=== PATIENT | female | born 1970 | race Two or more races ===

== ENCOUNTER 2025-03-22 16:46 | Inpatient (IN) | payer MEDICAID, OTHER ==
[~2025-03-22] VITALS: Ht 157.5 cm; Wt 97.4 kg
[~2025-03-22 16:46] MED LIST: ALBU108A5 INH; AMLO1TAB23 PO; AMOX500C2 PO; CHOL20002 PO; DAPA1TAB4 PO; HYDR25TA87 PO; LOSA100T33 PO; METF-371 PO; METO1TAB9 PO
--- NOTE | 2025-03-22 17:01 | ECG ---
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
[2025-03-22] MEDS: NITROGLYCERIN 2% OINT 1GM PKG TD ONE (17:15)
[2025-03-22] MEDS: IPRATROPIUM BROM 0.5 MG/2.5ML INH SOL NEB ONE (17:21)
[2025-03-22] MEDS: ALBUTEROL SULF 2.5 MG/0.5ML(0.5%) NEB SOLN NEB ONE ×2 (17:21→23:59)
[2025-03-22 17:23] LABS: Basophils # (auto) 0 10 ^3/uL (0-0.2); Basophils % (auto) 0.6 % (0.0-2.0); Eosinophils # (auto) 0.1 10 ^3/uL (0-0.8); Eosinophils % (auto) 1.3 % (0.0-7.0); Hematocrit 45.3 % (36.0-46.0); Hemoglobin 15.6 g/dL (12.2-16.2); Lymphocytes # (auto) 2.1 10 ^3/uL (0.4-5.4); Lymphocytes % (auto) 35.5 % (10.0-50.0); Mean Corpuscular Hemoglobin 30.4 pg (28.0-32.0); Mean Corpuscular Hgb Conc. 34.4 g/dL (32.0-36.0); Mean Corpuscular Volume 88.4 fL (80.0-100.0); Monocytes # (auto) 0.8 10 ^3/uL (0-1.3); Neutrophils # (auto) 2.8 10 ^3/uL (1.6-8.6); Neutrophils % (auto) 48.6 % (37.0-80.0); Nucleated Red Blood Cells % 0.3 %; Platelet Count (auto) 191 10^3/uL (140-450); Red Blood Cells 5.13 10^6/uL (4.0-5.20); Red Cell Distribution Width 14.1 % (11.8-14.3); White Blood Cell 5.8 10^3/uL (4.4-10.8)
--- NOTE | 2025-03-22 17:33 | DVH ---
INDICATION: sob TECHNIQUE: Frontal view of the chest. COMPARISON: None FINDINGS: . The heart and mediastinal contours are grossly unremarkable. There is no evidence of pleural disea se. The lungs are clear. The bony structures of the chest are intact without fracture. IMPRESSION: 1. No evidence of acute disease.
[2025-03-22 17:35] LABS: Anion Gap 7 (5-15); Carbon Dioxide 22 mmol/L (20-31); Potassium 3.9 mmol/L (3.5-5.1); Sodium 137 mmol/L (136-145)
[2025-03-22 17:36] LABS: Calcium 9.2 mg/dL (8.7-10.4)
[2025-03-22 17:42] LABS: Blood Urea Nitrogen 8 mg/dL (9-23); Chloride 108 mmol/L (98-107); Glucose 107 mg/dL (74-106)
--- NOTE | 2025-03-22 18:53 | ED.PDOC ---
History of Present Illness HPI Comments 55 y/o F with history of COPD, DM, HTN, and cholecystectomy, brought in by family for c/o shortness of breath, nonradiating, nonproductive cough, left- sided chest pain, cold symptoms and headache that began last night. Patient denies recent travel, sick contact or significant cardiac history. Denies any fever, chills, nausea, vomiting, urinary symptoms, or other associated symptoms. Chief Complaint: Shortness of Breath Time Seen by MD: 16:50 Reviewed Notes: Nurses Notes, Medications, Allergies Allergies: Coded Allergies: Iodine (Verified Allergy, Unknown, 03/22/25) Information Source: Patient Mode of Arrival: Ambulatory Severity: Moderate Past Medical History PAST MEDICAL HISTORY: COPD (w/CPAP use ), DM, HTN Surgical History: Cholecystectomy Surgical History (Other): left-ear surgery All Other Systems: Reviewed and Negative (Comprehensive systems review obtained and negative except for what is stated in the HPI.) Physical Exam General Appearance: Moderate Distress HEENT: Other (Pupils and face symmetric. Moist mucous membranes.) Neck: Full Range of Motion, Normal Inspection Respiratory: Accessory Muscle Use, Decreased Breath Sounds, Respiratory Distress, Rhonchi Cardiovascular: No Edema, No JVD, Regular Rate/Rhythm Breast Exam: Deferred Gastrointestinal: Non Tender, Soft Genitalia: Deferred Pelvic: Deferred Rectal: Deferred Extremities: Normal inspection, Normal range of motion, Non-tender, No pedal edema Neurologic: Alert (Oriented x4), Normal Affect, Normal Mood Cerebellar Function: NOT DONE Reflexes: NOT DONE Skin: Dry, Normal Color, Warm Lymphatic: NOT DONE Was a procedure done? Was a procedure done?: No EKG EKG : Comments Sinus rhythm, rate 96, normal OH and QRS intervals, QTC 479, normal axis, possible old anteroseptal infarct, inferior and lateral ST depression with T- wave inversion Differential Dx Considerations may include: COPD exacerbation, CHF, ACS, AR, PE, PNA, URI, anxiety, angina, costochondritis, pericarditis, viral syndrome, among others X-Ray, Labs, Meds, VS Vital Signs Date Time Temp Pulse Resp B/P (MAP) Pulse Ox O2 Delivery O2 Flow Rate FiO2 03/22/25 21:15 99.0 108 20 186/119 (141) 95 99.0 03/22/25 21:15 20 100 Room Air 03/22/25 17:21 20 95 Nasal Cannula* 2 28 03/22/25 17:06 94 Nasal Cannula* 2 28 03/22/25 17:00 96 03/22/25 16:58 98.4 109 24 168/114 (132) 94 98.4 Lab Test 03/22/25 22:17 03/22/25 18:25 03/22/25 17:05 Range/Units D-Dimer, Quantitative Pending Troponin I High Sensitivity 9 7 </=34 ng/L White Blood Count 5.8 4.4-10.8 10^3/uL Red Blood Count 5.13 4.0-5.20 10^6/uL Hemoglobin 15.6 12.2-16.2 g/dL Hematocrit 45.3 36.0-46.0 % Mean Corpuscular Volume 88.4 80.0-100.0 fL Mean Corpuscular Hemoglobin 30.4 28.0-32.0 pg Mean Corpuscular Hemoglobin Concent 34.4 32.0-36.0 g/dL Red Cell Distribution Width 14.1 11.8-14.3 % Platelet Count 191 140-450 10^3/uL Mean Platelet Volume 9.3 6.9-10.8 fL Neutrophils (%) (Auto) 48.6 37.0-80.0 % Lymphocytes (%) (Auto) 35.5 10.0-50.0 % Monocytes (%) (Auto) 14.0 H 0.0-12.0 % Eosinophils (%) (Auto) 1.3 0.0-7.0 % Basophils (%) (Auto) 0.6 0.0-2.0 % Neutrophils # (Auto) 2.8 1.6-8.6 10 ^3/uL Lymphocytes # (Auto) 2.1 0.4-5.4 10 ^3/uL Monocytes # (Auto) 0.8 0-1.3 10 ^3/uL Eosinophils # (Auto) 0.1 0-0.8 10 ^3/uL Basophils # (Auto) 0 0-0.2 10 ^3/uL Nucleated Red Blood Cells 0.3 % Sodium Level 137 136-145 mmol/L Potassium Level 3.9 3.5-5.1 mmol/L Chloride Level 108 H 98-107 mmol/L Carbon Dioxide Level 22 20-31 mmol/L Anion Gap 7 5-15 Blood Urea Nitrogen 8 L 9-23 mg/dL Creatinine 1.15 H 0.550-1.02 mg/dL Glomerular Filtration Rate Calc 57 >90 mL/min BUN/Creatinine Ratio 7.0 L 10.0-20.0 Serum Glucose 107 H 74-106 mg/dL Calcium Level 9.2 8.7-10.4 mg/dL B-Type Natriuretic Peptide 34.99 0-100 pg/mL Current Medications Medications (Trade) Dose Ordered Sig/Jimena Route Start Time Stop Time Status Last Admin Albuterol (Ventolin Medneb) 5 mg ONCE ONCE NEB 03/22/25 17:15 03/22/25 17:16 DC 03/22/25 17:21 Ipratropium [place] (Atrovent Medneb) 0.5 mg ONCE ONCE NEB 03/22/25 17:15 03/22/25 17:16 DC 03/22/25 17:21 [place] [id number] Ph: [phone] DIAGNOSTIC IMAGING Diagnostic Imaging Report : [id number] Signed PATIENT: MICAELA LONG ACCT: [id number] UNIT: [id number] : 1970 LOC: ER ROOM / BED: / AGE / SEX: 55 / F ADM STATUS: REG ER SERVICE 02 ORDERING PHYSICIAN: OZ MIRZA MD PROCEDURE(s): CXRP - CHEST PORTABLE REASON: sob ORDER NUMBER(s): [id number], ACCESSION NUMBER(s): [id number] INDICATION: sob TECHNIQUE: Frontal view of the chest. COMPARISON: None FINDINGS: . The heart and mediastinal contours are grossly unremarkable. There is no evidence of pleural disease. The lungs are clear. The bony structures of the chest are intact without fracture. IMPRESSION: 1. No evidence of acute disease. ATED BY: ANTONIO CHAVEZ MD DICTATED DATE/TIME: 03/22/251730 SIGNED BY: ANTONIO CHAVEZ MD SIGNED DATE/TIME: 03/22/251730 CC: X-Ray, Labs, Meds, VS Comment 55-year-old female with a history of non oxygen dependent COPD, hypertension and diabetes complaining of shortness of breath and chest pain Vitals remarkable for heart rate 109, respiratory rate 24, BP 168/114, oxygen saturation 94% on 2 L nasal cannula Exam remarkable for diminished breath sounds, mild respiratory distress and accessory muscle use Rhythm strip independently interpreted by me: Sinus rhythm, rate 96, no ectopy. Chest x-ray No acute disease CBC unremarkable, metabolic panel remarkable for creatinine 1.15, BNP and 2 serial troponins negative Patient treated with the following in the ED: Albuterol 5 mg/Atrovent 0.5 mg nebulized, Solu-Medrol 125 mg IV, Nitro-Bid 1/2 inch to chest wall, aspirin 325 mg p.o. Tylenol 1 g p.o. , hydralazine 10 mg IV On re-evaluation, shortness of breath has improved, chest pain has resolved, vitals are stable, oxygen saturation is 95% on 2 L nasal cannula Plan is to admit the patient for respiratory support as needed and for Cardiology evaluation. Time of 1ST Reevaluation: 17:20 Reevaluation 1ST: Improved Patient Education/Counseling: Diagnosis, Treatment Family Education/Counseling: Diagnosis, Treatment Departure 1 Departure Time of Disposition: 20:53 Impression: Primary Impression: Acute hypoxic respiratory failure Additional Impressions: COPD exacerbation Chest pain with high risk for cardiac etiology Hypertensive urgency Disposition: 09 ADMITTED INPATIENT Admit to: [facility] Condition: Guarded Critical Care Note Critical Care Time?: No Stability Stability form required: No Heart Score Heart Score: Heart Score Response (Comments) Value History Moderate Suspicious [address]-Deviation 2 Age 45-64 1 Risk Factors 1 or 2 risk factors 1 Troponin Normal limit 0 Total 5 I personally scribed for OZ MIRZA MD ([email or web address]) on 03/22/25 at 18:53. Electronically submitted by Neil Velázquez ([email or web address]). I personally scribed for OZ MIRZA MD ([email or web address]) on 03/22/25 at 20:29. Electronically submitted by Neil Velázquez ([email or web address]). OZ MIRZA MD March 22, 2025 18:53
[2025-03-22 20:30] VITALS: BP 186/119; PULSE 108; RESP 20; TEMP 99; O2SAT 95
[2025-03-22] MEDS: hydrALAZINE HCL 25 MG TAB PO SCH (22:00)
[2025-03-22] MEDS ORDERED: DEXTROSE (50%) 50ML SYRG IV PRN (22:00)
[2025-03-22] MEDS: ACCU-CHEK COMFORT CURVE STRIP VI SCH (22:00)
[2025-03-22] MEDS: InsuLIN REG 1unit/0.01ml Soln (100units/ml) SC SCH (22:00)
[2025-03-22] MEDS ORDERED: ACETAMINOPHEN 325 MG TAB PO PRN (22:00)
[2025-03-22 23:25] VITALS: PULSE 100; RESP 13; O2SAT 93
[2025-03-22] MEDS: ASPirin 325 MG TAB PO ONE (23:31)
[2025-03-22] MEDS: methylPREDNISolone SOD SUCC 125 MG/2 ML VL IV ONE (23:32)
[2025-03-22] MEDS: hydrALAZINE HCL 20 MG/ML VL IV ONE (23:32)
[2025-03-22] MEDS: ACETAMINOPHEN 500 MG TAB or CAP PO ONE (23:32)
[2025-03-23] VITALS (17 sets, daily range): BP systolic 114–152; BP diastolic 91–109; PULSE 71–111; RESP 13–36; O2SAT 92–97
[2025-03-23] MEDS: ALBUTEROL SULF 2.5 MG/0.5ML(0.5%) NEB SOLN NEB PRN (00:09)
[2025-03-23] MEDS: IPRATROPIUM BROM 0.5 MG/2.5ML INH SOL NEB PRN (00:09)
[2025-03-23 03:05] LABS: Base Excess -0.8 mmol/L (-2.0-3.0)
--- NOTE | 2025-03-23 04:07 | DVHHP2 ---
History of Present Illness Reason for Visit: Shortness for breath History of Present Illness 55-year-old female presents for evaluation of shortness for breath. Patient reports a two day history of shortness for breath not being relieved with her inhaler or nebulizer at home. She also reports a productive cough with clear phlegm. No fever or chills. No other acute complaints reported. Past Medical History Diabetes mellitus, hypertension, COPD Past Surgical History Cholecystectomy Family History Noncontributory Smoke: No ALCOHOL: none Drugs: None Lives: with Family Review of Systems Review of Systems Review of systems are currently negative otherwise addressed in HPI. Allergies: Coded Allergies: Iodine (Verified Allergy, Unknown, 03/22/25) Medications Current Medications Medications Dose Ordered Sig/Jimena Route Start Time Stop Time Status Last Admin Dose Admin Ipratropium [place] 0.5 mg Q6HPRN PRN NEB 03/22/25 22:00 03/23/25 00:09 0.5 MG Albuterol 2.5 mg Q6HPRN PRN NEB 03/22/25 22:00 03/23/25 00:09 2.5 MG Hydralazine HCl 25 mg Q8HR PO 03/22/25 22:00 Metoprolol Succinate 100 mg DAILY PO 03/23/25 10:00 Diagnostic Test (Pha) 1 strip ACHS 03/22/25 22:00 03/22/25 22:00 1 STRIP Insulin Human Regular ACHS SC 03/22/25 22:00 Dextrose 50 ml UD PRN IV 03/22/25 22:00 Ondansetron HCl 4 mg Q4HP PRN IV 03/22/25 22:00 Acetaminophen 650 mg Q6HP PRN PO 03/22/25 22:00 Exam Vital Signs Vital Signs Date Time Temp Pulse Resp B/P (MAP) Pulse Ox O2 Delivery O2 Flow Rate FiO2 03/23/25 01:57 105 19 144/90 (108) 95 03/23/25 00:47 45.0 35 03/23/25 00:11 Nasal Cannula* 03/22/25 23:25 98.4 98.4 Exam Gen: 55-year-old female in mild distress Skin: Warm, dry, normal color and texture, no rash. HEENT: Normocephalic atraumatic, mucous membranes moist and pink. Neck: Cervical and supraclavicular nodes normal without enlargement, trachea is midline, thyroid gland is normal without masses. Pulmonary: Bilateral wheeze Cardiac: Regular rate and rhythm. No murmur Abdomen: Soft, nontender, nondistended, bowel sounds present all 4 quadrants, no guarding, no rigidity, no organomegaly. Extremities: No cyanosis, clubbing, no edema Neuro: Cranial nerves II through XII grossly intact, normal affect and speech, no focal motor deficits. Labs/Xrays ORDERING PHYSICIAN: OZ MIRZA MD PROCEDURE(s): CXRP - CHEST PORTABLE REASON: sob ORDER NUMBER(s): [id number], ACCESSION NUMBER(s): [id number] INDICATION: sob TECHNIQUE: Frontal view of the chest. COMPARISON: None FINDINGS: . The heart and mediastinal contours are grossly unremarkable. There is no evidence of pleural disease. The lungs are clear. The bony structures of the chest are intact without fracture. IMPRESSION: 1. No evidence of acute disease. Labs Test 03/23/25 02:51 03/22/25 22:17 03/22/25 18:25 03/22/25 17:05 Range/Units Blood Gas Specimen Type Arterial Blood Gas Sample Site Right radial Blood Gas Patient Temperature 37.0 Arterial Blood Date Drawn Arterial Blood pH 7.425 7.350-7.450 Arterial Blood Partial Pressure CO2 35.8 32.0-45.0 mmHg Arterial Blood Partial Pressure O2 70.5 L 83.0-108.0 mmHg Arterial Blood HCO3 23.0 21.0-28.0 mmol/L Arterial Blood Oxygen Saturation 93.9 L 94.0-98.0 % Arterial Blood Base Excess -0.8 -2.0-3.0 mmol/L Arterial Blood Oxyhemoglobin 92.9 L 94.0-98.0 % Arterial Blood Carboxyhemoglobin 0.5 0.5-1.5 % Arterial Blood Methemoglobin 0.6 0.0-1.5 % Bobby Test Modified Blood Gas Total Hemoglobin 15.90 12.0-16.0 g/dL Blood Gas Liter Flow 45.00 Blood Gas Modality High flow FiO2 % 35.0 D-Dimer, Quantitative 0.32 0.0-0.49 mg/L FEU Troponin I High Sensitivity 9 </=34 ng/L White Blood Count 5.8 4.4-10.8 10^3/uL Red Blood Count 5.13 4.0-5.20 10^6/uL Hemoglobin 15.6 12.2-16.2 g/dL Hematocrit 45.3 36.0-46.0 % Mean Corpuscular Volume 88.4 80.0-100.0 fL Mean Corpuscular Hemoglobin 30.4 28.0-32.0 pg Mean Corpuscular Hemoglobin Concent 34.4 32.0-36.0 g/dL Red Cell Distribution Width 14.1 11.8-14.3 % Platelet Count 191 140-450 10^3/uL Mean Platelet Volume 9.3 6.9-10.8 fL Neutrophils (%) (Auto) 48.6 37.0-80.0 % Lymphocytes (%) (Auto) 35.5 10.0-50.0 % Monocytes (%) (Auto) 14.0 H 0.0-12.0 % Eosinophils (%) (Auto) 1.3 0.0-7.0 % Basophils (%) (Auto) 0.6 0.0-2.0 % Neutrophils # (Auto) 2.8 1.6-8.6 10 ^3/uL Lymphocytes # (Auto) 2.1 0.4-5.4 10 ^3/uL Monocytes # (Auto) 0.8 0-1.3 10 ^3/uL Eosinophils # (Auto) 0.1 0-0.8 10 ^3/uL Basophils # (Auto) 0 0-0.2 10 ^3/uL Nucleated Red Blood Cells 0.3 % Sodium Level 137 136-145 mmol/L Potassium Level 3.9 3.5-5.1 mmol/L Chloride Level 108 H 98-107 mmol/L Carbon Dioxide Level 22 20-31 mmol/L Anion Gap 7 5-15 Blood Urea Nitrogen 8 L 9-23 mg/dL Creatinine 1.15 H 0.550-1.02 mg/dL Glomerular Filtration Rate Calc 57 >90 mL/min BUN/Creatinine Ratio 7.0 L 10.0-20.0 Serum Glucose 107 H 74-106 mg/dL Calcium Level 9.2 8.7-10.4 mg/dL B-Type Natriuretic Peptide 34.99 0-100 pg/mL Assessment/Plan Assessment/Plan Assessment Acute on chronic hypoxic respiratory failure COPD exacerbation Diabetes mellitus Accelerated hypertension Acute kidney injury Plan Admit the patient to telemetry to the hospitalist Med nebs Resume home medications As needed antihypertensives Continue treatment per orders. Plan discussed with: Patient My Orders Orders - AZUL HALEY Procedure Category Date Status Time Ipratropium Medneb PHA 03/22/25 In Process (Atrovent Medneb) 22:00 Albuterol Medneb PHA 03/22/25 In Process (Ventolin Medneb) 22:00 Hydralazine Hcl PHA 03/22/25 In Process Tablet (Apresoline 22:00 Metoprolol Xl PHA 03/23/25 In Process Succinate (Toprol Xl) 10:00 Consistent DIET 03/23/25 Transmitted Carb(Ccho)Diabetes Breakfast Basic Metabolic Panel LAB 03/23/25 Logged 04:00 Glucose Blood PHA 03/22/25 In Process (Accu-Chek Comfort 22:00 Insulin R (Human) PHA 03/22/25 In Process (Insulin R) 22:00 Dextrose 50% Syringe PHA 03/22/25 In Process 22:00 Condition: Stable ADY 03/22/25 In Process 21:59 Acetaminophen Tablet PHA 03/22/25 In Process (Tylenol Tablet) 22:00 Bedrest With Bathroom ADY 03/22/25 In Process Privileg 21:59 Admit ADMIT 03/22/25 Verified 21:59 Ondansetron Hcl PHA 03/22/25 In Process (Zofran) 22:00 Oxygen By High-Flow RT 03/23/25 Transmitted 00:47 Abg W/ Co-Ox RT 03/23/25 Logged 03:00 Date of Service: March 22, 2025 Billing Provider: AZUL HALEY Common Visit Codes: [id number] INP/OBS CARE (HIGH) AZUL HALEY March 23, 2025 04:07
[2025-03-23 06:20] LABS: Calcium 9.3 mg/dL (8.7-10.4); Chloride 106 mmol/L (98-107); Potassium 3.8 mmol/L (3.5-5.1); Sodium 137 mmol/L (136-145)
[2025-03-23 06:21] LABS: Anion Gap 9 (5-15); Carbon Dioxide 22 mmol/L (20-31)
[2025-03-23 06:26] LABS: BUN/Creatinine Ratio 9.6 (10.0-20.0); Blood Urea Nitrogen 11 mg/dL (9-23)
[2025-03-23 06:28] LABS: Glucose 185 mg/dL (74-106)
[2025-03-23] MEDS: methylPREDNISolone SOD SUCC 40 MG/ML VL IV SCH (10:05)
[2025-03-23] MEDS: METOPROLOL SUCCINATE XL 50 MG TAB PO SCH (10:06)
[2025-03-23] MEDS: DOXYCYCLINE 100MG/100ML 100 ML IV SCH (11:57)
--- NOTE | 2025-03-23 13:44 | DVHPN2 ---
Subjective 55-year-old female with a history of COPD came with a chief complaint of shortness of breaths and cough for 2 days She was hypoxic and needed high-flow oxygen She has a history of diabetes and hypertension COPD and obstructive sleep apnea She uses CPAP at night, no home O2 Changes from previous H/P or p: Changes Objective Vitals Vital Signs Date Time Temp Pulse Resp B/P (MAP) Pulse Ox O2 Delivery O2 Flow Rate FiO2 03/23/25 12:00 84 03/23/25 11:03 19 97 03/23/25 11:02 45.0 35 03/23/25 10:06 152/105 03/23/25 07:29 98.2 98.2 03/23/25 07:29 Hi-Flow Heated NC+ Medications Current Medications Medications Dose Ordered Sig/Jimena Route Start Time Stop Time Status Last Admin Dose Admin Hydralazine HCl 25 mg Q8HR PO 03/22/25 22:00 03/23/25 06:00 25 MG Metoprolol Succinate 100 mg DAILY PO 03/23/25 10:00 03/23/25 10:06 100 MG Diagnostic Test (Pha) 1 strip ACHS 03/22/25 22:00 03/23/25 11:30 1 STRIP Insulin Human Regular ACHS SC 03/22/25 22:00 03/23/25 12:03 2 UNITS Dextrose 50 ml UD PRN IV 03/22/25 22:00 Ondansetron HCl 4 mg Q4HP PRN IV 03/22/25 22:00 Acetaminophen 650 mg Q6HP PRN PO 03/22/25 22:00 Methylprednisolone Sodium Succinate 40 mg BID IV 03/23/25 10:00 03/23/25 10:05 40 MG Doxycycline Hyclate 100 ml @ 50 mls/hr Q12HR IV 03/23/25 11:15 03/23/25 11:57 50 MLS/HR Albuterol 2.5 mg Q4HR NEB 03/23/25 14:00 Ipratropium [employer] 0.5 mg Q4HR NEB 03/23/25 14:00 Laboratory Results Laboratory Tests 03/22/25 17:05 03/23/25 05:35 Chemistry Test 03/22/25 17:05 03/23/25 05:35 Calcium Level 9.2 mg/dL (8.7-10.4) 9.3 mg/dL (8.7-10.4) Coagulation Test 03/22/25 22:17 D-Dimer, Quantitative 0.32 mg/L FEU (0.0-0.49) Cardiac Markers Test 03/22/25 17:05 B-Type Natriuretic Peptide 34.99 pg/mL (0-100) Blood Gas Results Test 03/23/25 02:51 Arterial Blood pH 7.425 (7.350-7.450) FiO2 % 35.0 Assessment/Plan Assessment/Plan Acute hypoxic respiratory failure due to COPD exacerbation COPD exacerbation Type 2 diabetes Hypertension Obstructive sleep apnea Hypertension Type 2 diabetes Plan Continue oxygen as needed Med neb treatments as needed Doxycycline IV IV steroids Solu-Medrol Full code Advance directives discussed with the patient for 15 minutes Check COVID and influenza A and B Plan discussed with: Patient My Orders Orders - SURESH HENSON MD Procedure Category Date Status Time Code Status CODE 03/23/25 Transmitted 11:07 Doxycycline PHA 03/23/25 In Process 100mg/100ml 11:15 Albuterol Medneb PHA 03/23/25 In Process (Ventolin Medneb) 14:00 Ipratropium Medneb PHA 03/23/25 In Process (Atrovent Medneb) 14:00 Date of Service: March 23, 2025 Billing Provider: SURESH HENSON MD Common Visit Codes: [id number] INP/OBS CARE(HIGH) Secondary Visit Codes: [id number] CARE PLAN 30 MINUTES SURESH HENSON MD March 23, 2025 13:44
[2025-03-23] MEDS ORDERED: hydrALAZINE HCL 20 MG/ML VL IV PRN (13:45)
[2025-03-23] MEDS: IPRATROPIUM BROM 0.5 MG/2.5ML INH SOL NEB SCH (14:14)
[2025-03-23] MEDS: ALBUTEROL SULF 2.5 MG/0.5ML(0.5%) NEB SOLN NEB SCH (14:15)
[2025-03-23 16:24] LABS: COVID19 ANTIGEN SOFIA FIA NEGATIVE (NEGATIVE); Rapid Influenza A Negative (Negative); Rapid Influenza B Negative (Negative)
[2025-03-23] MEDS: ONDANSETRON HCL 4 MG/2 ML VIAL IV PRN (16:38)
[2025-03-24] VITALS (22 sets, daily range): BP systolic 102–133; BP diastolic 71–93; PULSE 56–85; RESP 11–25; TEMP 98.2–99; O2SAT 91–99
--- NOTE | 2025-03-24 13:31 | DVHPN2 ---
Subjective Slightly better Still on high-flow oxygen Changes from previous H/P or p: Changes Objective Vitals Vital Signs Date Time Temp Pulse Resp B/P (MAP) Pulse Ox O2 Delivery O2 Flow Rate FiO2 03/24/25 12:00 98.2 66 20 131/89 (103) 97 98.2 03/24/25 10:09 Hi-Flow Heated NC+ 45 35 35 Intake/Output Intake and Output 03/24/25 07:00 Intake Total 440 ml Balance 440 ml Intake Oral 240 ml IV Total 200 ml # Voids 1 # Bowel Movements 1 General Appearance: Alert, Oriented X3, moderate distress Lungs: Other (Diffuse wheezing) Cardiovascular: Regular rate, Normal S1, Normal S2 Abdomen: Normal bowel sounds, Soft, No tenderness Medications Current Medications Medications Dose Ordered Sig/Jimena Route Start Time Stop Time Status Last Admin Dose Admin Hydralazine HCl 25 mg Q8HR PO 03/22/25 22:00 03/24/25 06:09 25 MG Metoprolol Succinate 100 mg DAILY PO 03/23/25 10:00 03/24/25 10:14 100 MG Diagnostic Test (Pha) 1 strip ACHS 03/22/25 22:00 03/24/25 11:39 1 STRIP Insulin Human Regular ACHS SC 03/22/25 22:00 03/24/25 06:34 2 UNITS Dextrose 50 ml UD PRN IV 03/22/25 22:00 Ondansetron HCl 4 mg Q4HP PRN IV 03/22/25 22:00 03/23/25 22:24 4 MG Acetaminophen 650 mg Q6HP PRN PO 03/22/25 22:00 Methylprednisolone Sodium Succinate 40 mg BID IV 03/23/25 10:00 03/24/25 10:14 40 MG Doxycycline Hyclate 100 ml @ 50 mls/hr Q12HR IV 03/23/25 11:15 03/24/25 10:14 50 MLS/HR Albuterol 2.5 mg Q4HR NEB 03/23/25 14:00 03/24/25 10:09 2.5 MG Ipratropium [place] 0.5 mg Q4HR NEB 03/23/25 14:00 03/24/25 10:09 0.5 MG Hydralazine HCl 10 mg Q6HP PRN IV 03/23/25 13:45 Laboratory Results Laboratory Tests 03/22/25 17:05 03/23/25 05:35 Assessment/Plan Assessment/Plan Acute hypoxic respiratory failure due to COPD exacerbation COPD exacerbation Type 2 diabetes Hypertension Obstructive sleep apnea Hypertension Type 2 diabetes Plan Continue oxygen as needed Med neb treatments as needed Doxycycline IV IV steroids Solu-Medrol Full code Advance directives discussed with the patient for 15 minutes Check COVID and influenza A and B 03/24/2025: Continue oxygen as needed Steroids IV Med neb treatments as needed IV doxycycline Monitor closely The rest of the management will depend on the hospital course Plan discussed with: Patient My Orders Orders - SURESH HENSON MD Procedure Category Date Status Time Hydralazine Injection PHA 03/23/25 In Process (Apresoline Inject 13:45 Date of Service: March 24, 2025 Billing Provider: SURESH HENSON MD Common Visit Codes: [id number] INP/OBS CARE(HIGH) SURESH HENSON MD March 24, 2025 13:31
[2025-03-25] VITALS (22 sets, daily range): BP systolic 110–125; BP diastolic 75–86; PULSE 58–92; RESP 13–19; TEMP 97.5–98; O2SAT 91–100
[2025-03-25 05:51] LABS: Alanine Aminotransferase 39 U/L (7-40); Albumin 4.3 g/dL (3.2-4.8); Alkaline Phosphatase 66 U/L (46-116); Anion Gap 4 (5-15); Aspartate Aminotransferase 39 U/L (13-40); BUN/Creatinine Ratio 17.2 (10.0-20.0); Blood Urea Nitrogen 23 mg/dL (9-23); Calcium 9.8 mg/dL (8.7-10.4); Carbon Dioxide 30 mmol/L (20-31); Chloride 102 mmol/L (98-107); Cholesterol 135 mg/dL (< 200); LDL Cholesterol 73 mg/dL (< 100); Magnesium 1.7 mg/dL (1.6-2.6); Potassium 5.1 mmol/L (3.5-5.1); Sodium 136 mmol/L (136-145); Total Protein 8.1 g/dL (5.7-8.2); Triglycerides 75 mg/dL (< 150)
[2025-03-25 05:52] LABS: Bilirubin, Total 0.4 mg/dL (0.2-1.0); HDL Cholesterol 46 mg/dL (40-59)
[2025-03-25 06:07] LABS: Basophils # (auto) 0 10 ^3/uL (0-0.2); Basophils % (auto) 0.6 % (0.0-2.0); Eosinophils # (auto) 0 10 ^3/uL (0-0.8); Eosinophils % (auto) 0.1 % (0.0-7.0); Hematocrit 47.1 % (36.0-46.0); Hemoglobin 15.6 g/dL (12.2-16.2); Lymphocytes # (auto) 2.1 10 ^3/uL (0.4-5.4); Lymphocytes % (auto) 27.4 % (10.0-50.0); Mean Corpuscular Hemoglobin 29.6 pg (28.0-32.0); Mean Corpuscular Hgb Conc. 33.1 g/dL (32.0-36.0); Mean Corpuscular Volume 89.5 fL (80.0-100.0); Monocytes # (auto) 0.4 10 ^3/uL (0-1.3); Monocytes % (auto) 4.9 % (0.0-12.0); Neutrophils # (auto) 5.1 10 ^3/uL (1.6-8.6); Nucleated Red Blood Cells % 0.6 %; Platelet Count (auto) 206 10^3/uL (140-450); Red Blood Cells 5.26 10^6/uL (4.0-5.20); Red Cell Distribution Width 14.5 % (11.8-14.3); White Blood Cell 7.6 10^3/uL (4.4-10.8)
[2025-03-25 06:13] LABS: Glucose 146 mg/dL (74-106)
[2025-03-25 06:57] LABS: Giant Platelets Few; Large Platelets FEW; Platelet Estimate Adequate
--- NOTE | 2025-03-25 13:23 | DVHINCON2 ---
Date Seen: March 25, 2025 Referring Physician MD Rebecca Reason for Consultation Abnormal ECG History of Present Illness This is a 55-year-old female who presented to the emergency room with a chief complaint of shortness of breath since Friday. The shortness of breath is associated with left-sided retrosternal chest pain, tightness like, and worse with movement. She underwent a 12-lead electrocardiogram revealing a sinus rhythm with ST segment depression to multiple leads likely secondary to left ventricular hypertrophy. Serial troponin levels are negative. Denies family history for cardiovascular disease. Significant medical history includes hypertension, hlu-itrolbg-trxiszfhx diabetes mellitus, chronic kidney disease, LUC with CPAP HS, and COPD with current tobacco use. Past Medical History Past medical history reviewed. No other significant than mentioned above. Past Surgical History Cholecystectomy Family History Family history reviewed. Social History Denies the use of illicit drugs or alcohol. Admits to tobacco use, one pack per week. Allergies: Coded Allergies: Iodine (Verified Allergy, Unknown, 03/22/25) Home Meds Reported Medications Losartan Potassium & Hydrochlo (Losartan Potassium/Hydroc) 1 Tab Tab, 1 TAB PO DAILY for 90 Days, #90 [LOSARTAN-HYDROCHLO 100-12.5 MG] 03/23/25 Amlodipine Besylate (Amlodipine Besylate) 10 Mg Tab, 1 TAB PO DAILY for 90 Days, #90 03/23/25 Metoprolol Succinate (Metoprolol Succinate Er) 100 Mg Tab, 1 TAB PO DAILY for 90 Days, #90 03/23/25 Cholecalciferol (VITAMIN D3) 2,000 Unit Tab, 1 CAP PO DAILY for 90 Days, #90 03/23/25 Dapagliflozin Propanediol (Farxiga) 10 Mg Tab, 1 TAB PO DAILY for 30 Days, #30 03/23/25 Albuterol Sulfate (Albuterol Sulfate Hfa) 108 Mcg/Act Aer, 1 PUFF INH Q4HR PRN for 30 Days, #18 03/23/25 Metformin Hydrochloride (Metformin Hcl) 850 Mg Tab, 1 TAB PO BID for 90 Days, #180 03/23/25 Hydralazine HCl (Hydralazine HCl) 25 Mg Tab, 1 TAB PO TID for 30 Days, #180 TAKE 1 TABLET BY MOUTH 3 TIMES A DAY FOR BLOOD PRESSURE > 150. (TAKE 2 TABLETS 3 TIMES DAILY IF > 170). 03/23/25 Amoxicillin Trihydrate (Amoxicillin) 500 Mg Cap, 1 CAP PO Q8HR for 7 Days, #21 03/23/25 Home Meds Home medications reviewed. Review of Systems Constitutional: No symptom reported Ears, Nose, & Throat: No symptom reported Eyes: No symptom reported Neurological: No symptoms reported Pulmonary/Respiratory: SOB Cardiovascular: Chest pain Gastrointestinal: No symptom reported Genitourinary: No symptom reported Musculoskeletal: No symptom reported Skin: No symptom reported Psychiatric: No symptom reported Endocrine: No symptom reported Hemotologic/Lymphatic: No symptom reported Vital Signs Vital Signs Date Time Temp Pulse Resp B/P (MAP) Pulse Ox O2 Delivery O2 Flow Rate FiO2 03/25/25 11:00 67 19 120/81 (94) 92 03/25/25 08:00 98.7 98.7 03/25/25 07:50 Nasal Cannula* 3 32 Physical Exam General Appearance: Cooperative. Well developed. Well nourished. In no acute distress Head Exam: Normal inspection Neck Exam: Normal inspection. Non-tender. Normal alignment Pulmonary/Respiratory: Chest non-tender. Coarse/rhonchi bilateral breath sounds Cardiovascular/Chest: Regular rate and rhythm. S1, S2. Sinus rhythm with diffuse ST segment depression and associated LVH. No murmurs. No JVD. Peripheral Pulses: 2+ Radial (R). 2+ Radial (L). 2+ Pedal (R). 2+ Pedal (L) Abdominal Exam: Normal bowel sounds. Soft. Nontender. No hepatospenomegaly. No masses Ankle Exam: Negative ankle edema Lower extremities: Negative lower extremity edema Neuro/Mental Status: A&O x4. Coherent Thoughts/Psych: Normal thought pattern. Appropriate mood and affect. Good judgement and insight Appearance: In no acute distress Skin Exam: Normal inspection. Normal color. Warm. Dry Labs/Diagnostic Data Labs Test 03/25/25 11:33 03/25/25 04:45 03/23/25 15:48 03/23/25 02:51 Range/Units POC Glucose 133 H 70-106 mg/dl White Blood Count 7.6 # 4.4-10.8 10^3/uL Red Blood Count 5.26 H 4.0-5.20 10^6/uL Hemoglobin 15.6 12.2-16.2 g/dL Hematocrit 47.1 H 36.0-46.0 % Mean Corpuscular Volume 89.5 80.0-100.0 fL Mean Corpuscular Hemoglobin 29.6 28.0-32.0 pg Mean Corpuscular Hemoglobin Concent 33.1 32.0-36.0 g/dL Red Cell Distribution Width 14.5 H 11.8-14.3 % Platelet Count 206 140-450 10^3/uL Mean Platelet Volume 10.7 6.9-10.8 fL Neutrophils (%) (Auto) 67.0 37.0-80.0 % Lymphocytes (%) (Auto) 27.4 10.0-50.0 % Monocytes (%) (Auto) 4.9 0.0-12.0 % Eosinophils (%) (Auto) 0.1 0.0-7.0 % Basophils (%) (Auto) 0.6 0.0-2.0 % Neutrophils # (Auto) 5.1 1.6-8.6 10 ^3/uL Lymphocytes # (Auto) 2.1 0.4-5.4 10 ^3/uL Monocytes # (Auto) 0.4 0-1.3 10 ^3/uL Eosinophils # (Auto) 0 0-0.8 10 ^3/uL Basophils # (Auto) 0 0-0.2 10 ^3/uL Nucleated Red Blood Cells 0.6 % Platelet Estimate Adequate Large Platelets Few Giant Platelets Few Sodium Level 136 136-145 mmol/L Potassium Level 5.1 3.5-5.1 mmol/L Chloride Level 102 98-107 mmol/L Carbon Dioxide Level 30 20-31 mmol/L Anion Gap 4 L 5-15 Blood Urea Nitrogen 23 # 9-23 mg/dL Creatinine 1.34 H 0.550-1.02 mg/dL Glomerular Filtration Rate Calc 47 >90 mL/min BUN/Creatinine Ratio 17.2 10.0-20.0 Serum Glucose 146 H 74-106 mg/dL Calcium Level 9.8 8.7-10.4 mg/dL Magnesium Level 1.7 1.6-2.6 mg/dL Total Bilirubin 0.4 0.2-1.0 mg/dL Aspartate Amino Transferase (AST) 39 13-40 U/L Alanine Aminotransferase (ALT) 39 7-40 U/L Alkaline Phosphatase 66 46-116 U/L Troponin I High Sensitivity 10 </=34 ng/L Total Protein 8.1 5.7-8.2 g/dL Albumin 4.3 3.2-4.8 g/dL Triglycerides Level 75 < 150 mg/dL Cholesterol Level 135 < 200 mg/dL LDL Cholesterol 73 < 100 mg/dL HDL Cholesterol 46 40-59 mg/dL Thyroid Stimulating Hormone (TSH) 0.59 0.55-4.78 uIU/mL Influenza Type A Antigen Negative Negative Influenza Type B Antigen Negative Negative SARS-CoV-2 Antigen (Rapid) Negative NEGATIVE Blood Gas Specimen Type Arterial Blood Gas Sample Site Right radial Blood Gas Patient Temperature 37.0 Arterial Blood Date Drawn [id number] Arterial Blood pH 7.425 7.350-7.450 Arterial Blood Partial Pressure CO2 35.8 32.0-45.0 mmHg Arterial Blood Partial Pressure O2 70.5 L 83.0-108.0 mmHg Arterial Blood HCO3 23.0 21.0-28.0 mmol/L Arterial Blood Oxygen Saturation 93.9 L 94.0-98.0 % Arterial Blood Base Excess -0.8 -2.0-3.0 mmol/L Arterial Blood Oxyhemoglobin 92.9 L 94.0-98.0 % Arterial Blood Carboxyhemoglobin 0.5 0.5-1.5 % Arterial Blood Methemoglobin 0.6 0.0-1.5 % Bobby Test Modified Blood Gas Total Hemoglobin 15.90 12.0-16.0 g/dL Blood Gas Liter Flow 45.00 Blood Gas Modality High flow FiO2 % 35.0 Test 03/22/25 22:17 03/22/25 17:05 Range/Units D-Dimer, Quantitative 0.32 0.0-0.49 mg/L FEU B-Type Natriuretic Peptide 34.99 0-100 pg/mL Assessment Acute COPD exacerbation Acute on chronic hypoxic respiratory failure LUC with CPAP HS Hypertension Plh-tjjfdnz-ihzzhpuql diabetes mellitus Chronic kidney disease Nicotine dependence Plan/Recommendation (Dr. Rios) The patient with a COPD exacerbation presents with a 12 lead electrocardiogram revealing dynamic changes likely secondary to left ventricular hypertrophy. We will continue further cardiac evaluation with a transthoracic echocardiogram to rule out structural heart disease. She will also be scheduled for a nuclear stress test to rule out coronary ischemia. In the meantime, continue primary care team recommendations. Further orders per clinical course. Thank you for allowing us to participate in this patient's care. Please call if you have any questions or concerns. This medical document was created using an electronic medical record system with voice recognition software and computerized dictation system. Although this document has been carefully reviewed, there might still be some phonetic and typographical errors. Occasional wrong-word or ``sound-alike substitutions may have occurred due to the inherent limitations of voice recognition software. These areas are purely typographical due to imperfections of the software programs and do not reflect any compromise in the patient's medical care. Please read the chart carefully and recognize, using context, where these substitutions have occurred. Plan discussed with: Patient, Other NYHA Physical activity limitations: NA Date of Service: March 25, 2025 Billing Provider: ENRICO DUMONT Cardiology Common Codes: [id number] INP/OBS CARE (High) ENRICO DUMONT March 25, 2025 13:23
--- NOTE | 2025-03-25 15:29 | DVHINCON2 ---
Date Seen: March 25, 2025 Referring Physician MD Rebecca Reason for Consultation Abnormal ECG History of Present Illness This is a 55-year-old female with a past medical history of hypertension, ezt-pyzogld-exbdoitmq diabetes mellitus, chronic kidney disease, LUC with CPAP HS, and COPD with current tobacco use who presented to the ED with complaint of shortness of breath since Friday. The shortness of breath is associated with left-sided retrosternal chest pain, tightness like, and worse with movement. Patient underwent a 12-lead electrocardiogram revealing a sinus rhythm with ST segment depression to multiple leads likely secondary to left ventricular hypertrophy. Serial troponin levels are negative. Patient currently denies family history for cardiovascular disease. Chest x-ray showed NAD. Patient was admitted to the hospital. I am asked to consult on this patient. Past Medical History Past medical history reviewed. No other significant than mentioned above. Past Surgical History Cholecystectomy Allergies: Coded Allergies: Iodine (Verified Allergy, Unknown, 03/22/25) Home Meds Reported Medications Losartan Potassium & Hydrochlo (Losartan Potassium/Hydroc) 1 Tab Tab, 1 TAB PO DAILY for 90 Days, #90 [LOSARTAN-HYDROCHLO 100-12.5 MG] 03/23/25 Amlodipine Besylate (Amlodipine Besylate) 10 Mg Tab, 1 TAB PO DAILY for 90 Days, #90 03/23/25 Metoprolol Succinate (Metoprolol Succinate Er) 100 Mg Tab, 1 TAB PO DAILY for 90 Days, #90 03/23/25 Cholecalciferol (VITAMIN D3) 2,000 Unit Tab, 1 CAP PO DAILY for 90 Days, #90 03/23/25 Dapagliflozin Propanediol (Farxiga) 10 Mg Tab, 1 TAB PO DAILY for 30 Days, #30 03/23/25 Albuterol Sulfate (Albuterol Sulfate Hfa) 108 Mcg/Act Aer, 1 PUFF INH Q4HR PRN for 30 Days, #18 03/23/25 Metformin Hydrochloride (Metformin Hcl) 850 Mg Tab, 1 TAB PO BID for 90 Days, #180 03/23/25 Hydralazine HCl (Hydralazine HCl) 25 Mg Tab, 1 TAB PO TID for 30 Days, #180 TAKE 1 TABLET BY MOUTH 3 TIMES A DAY FOR BLOOD PRESSURE > 150. (TAKE 2 TABLETS 3 TIMES DAILY IF > 170). 03/23/25 Amoxicillin Trihydrate (Amoxicillin) 500 Mg Cap, 1 CAP PO Q8HR for 7 Days, #21 03/23/25 Review of Systems Constitutional: No symptom reported Ears, Nose, & Throat: No symptom reported Eyes: No symptom reported Neurological: No symptoms reported Pulmonary/Respiratory: SOB Cardiovascular: Chest pain Gastrointestinal: No symptom reported Genitourinary: No symptom reported Musculoskeletal: No symptom reported Skin: No symptom reported Psychiatric: No symptom reported Endocrine: No symptom reported Hemotologic/Lymphatic: No symptom reported Vital Signs Vital Signs Date Time Temp Pulse Resp B/P (MAP) Pulse Ox O2 Delivery O2 Flow Rate FiO2 03/25/25 12:00 58 03/25/25 11:00 19 120/81 (94) 92 03/25/25 08:00 98.7 98.7 03/25/25 07:50 Nasal Cannula* 3 32 Physical Exam GENERAL: Alert and oriented x 3. No acute distress. EYES: PERRL, EOMI. Anicteric. HENT: Moist mucous membranes. LUNGS: Coarse breath sounds. CARDIOVASCULAR: Regular rate and rhythm. ABDOMEN: Soft, nontender and nondistended. EXTREMITIES: No edema. NEUROLOGIC: No focal neurological deficits. SKIN: Warm, dry. Labs/Diagnostic Data Labs Test 03/25/25 11:33 03/25/25 04:45 03/23/25 15:48 03/23/25 02:51 Range/Units POC Glucose 133 H 70-106 mg/dl White Blood Count 7.6 # 4.4-10.8 10^3/uL Red Blood Count 5.26 H 4.0-5.20 10^6/uL Hemoglobin 15.6 12.2-16.2 g/dL Hematocrit 47.1 H 36.0-46.0 % Mean Corpuscular Volume 89.5 80.0-100.0 fL Mean Corpuscular Hemoglobin 29.6 28.0-32.0 pg Mean Corpuscular Hemoglobin Concent 33.1 32.0-36.0 g/dL Red Cell Distribution Width 14.5 H 11.8-14.3 % Platelet Count 206 140-450 10^3/uL Mean Platelet Volume 10.7 6.9-10.8 fL Neutrophils (%) (Auto) 67.0 37.0-80.0 % Lymphocytes (%) (Auto) 27.4 10.0-50.0 % Monocytes (%) (Auto) 4.9 0.0-12.0 % Eosinophils (%) (Auto) 0.1 0.0-7.0 % Basophils (%) (Auto) 0.6 0.0-2.0 % Neutrophils # (Auto) 5.1 1.6-8.6 10 ^3/uL Lymphocytes # (Auto) 2.1 0.4-5.4 10 ^3/uL Monocytes # (Auto) 0.4 0-1.3 10 ^3/uL Eosinophils # (Auto) 0 0-0.8 10 ^3/uL Basophils # (Auto) 0 0-0.2 10 ^3/uL Nucleated Red Blood Cells 0.6 % Platelet Estimate Adequate Large Platelets Few Giant Platelets Few Sodium Level 136 136-145 mmol/L Potassium Level 5.1 3.5-5.1 mmol/L Chloride Level 102 98-107 mmol/L Carbon Dioxide Level 30 20-31 mmol/L Anion Gap 4 L 5-15 Blood Urea Nitrogen 23 # 9-23 mg/dL Creatinine 1.34 H 0.550-1.02 mg/dL Glomerular Filtration Rate Calc 47 >90 mL/min BUN/Creatinine Ratio 17.2 10.0-20.0 Serum Glucose 146 H 74-106 mg/dL Calcium Level 9.8 8.7-10.4 mg/dL Magnesium Level 1.7 1.6-2.6 mg/dL Total Bilirubin 0.4 0.2-1.0 mg/dL Aspartate Amino Transferase (AST) 39 13-40 U/L Alanine Aminotransferase (ALT) 39 7-40 U/L Alkaline Phosphatase 66 46-116 U/L Troponin I High Sensitivity 10 </=34 ng/L Total Protein 8.1 5.7-8.2 g/dL Albumin 4.3 3.2-4.8 g/dL Triglycerides Level 75 < 150 mg/dL Cholesterol Level 135 < 200 mg/dL LDL Cholesterol 73 < 100 mg/dL HDL Cholesterol 46 40-59 mg/dL Thyroid Stimulating Hormone (TSH) 0.59 0.55-4.78 uIU/mL Influenza Type A Antigen Negative Negative Influenza Type B Antigen Negative Negative SARS-CoV-2 Antigen (Rapid) Negative NEGATIVE Blood Gas Specimen Type Arterial Blood Gas Sample Site Right radial Blood Gas Patient Temperature 37.0 Arterial Blood Date Drawn Arterial Blood pH 7.425 7.350-7.450 Arterial Blood Partial Pressure CO2 35.8 32.0-45.0 mmHg Arterial Blood Partial Pressure O2 70.5 L 83.0-108.0 mmHg Arterial Blood HCO3 23.0 21.0-28.0 mmol/L Arterial Blood Oxygen Saturation 93.9 L 94.0-98.0 % Arterial Blood Base Excess -0.8 -2.0-3.0 mmol/L Arterial Blood Oxyhemoglobin 92.9 L 94.0-98.0 % Arterial Blood Carboxyhemoglobin 0.5 0.5-1.5 % Arterial Blood Methemoglobin 0.6 0.0-1.5 % Bobby Test Modified Blood Gas Total Hemoglobin 15.90 12.0-16.0 g/dL Blood Gas Liter Flow 45.00 Blood Gas Modality High flow FiO2 % 35.0 Test 03/22/25 22:17 03/22/25 17:05 Range/Units D-Dimer, Quantitative 0.32 0.0-0.49 mg/L FEU B-Type Natriuretic Peptide 34.99 0-100 pg/mL Assessment Acute COPD exacerbation. Acute on chronic hypoxic respiratory failure. LUC with CPAP HS. Hypertension. Xsw-jpflflc-feidnmcli diabetes mellitus. Chronic kidney disease. Nicotine dependence. Plan/Recommendation I agree with your ongoing assessment and care of plan. Patient has been seen by Maureen Salguero NP on my behalf, her and I discussed the plan with the patient. The patient with a COPD exacerbation presents with a 12 lead electrocardiogram revealing dynamic changes likely secondary to left ventricular hypertrophy. We will continue further cardiac evaluation with a transthoracic echocardiogram to rule out structural heart disease. She will also be scheduled for a nuclear stress test to rule out coronary ischemia. In the meantime, continue primary care team recommendations. Hydralazine. IV Hydralazine for SBP >150. Metoprolol. Additional plan as per the hospital course. Plan discussed with: Patient NYHA Physical activity limitations: NA Date of Service: March 25, 2025 Billing Provider: BA JEWELL MD Cardiology Common Codes: [id number] INP/OBS CARE (High) BA JEWELL MD March 25, 2025 13:46
--- NOTE | 2025-03-25 17:51 | DVHPN2 ---
Subjective Better Off high flow O2 Noticed ST depression on monitor EKG: ST depression Changes from previous H/P or p: Changes Objective Vitals Vital Signs Date Time Temp Pulse Resp B/P (MAP) Pulse Ox O2 Delivery O2 Flow Rate FiO2 03/25/25 17:00 97.5 83 18 123/86 (98) 96 97.5 03/25/25 07:50 Nasal Cannula* 3 32 Intake/Output Intake and Output 03/25/25 07:00 Intake Total 500 ml Balance 500 ml Intake Oral 300 ml IV Total 200 ml # Voids 2 General Appearance: Alert, Oriented X3, moderate distress Lungs: Other (Diffuse wheezing) Cardiovascular: Regular rate, Normal S1, Normal S2 Abdomen: Normal bowel sounds, Soft, No tenderness Medications Current Medications Medications Dose Ordered Sig/Jimena Route Start Time Stop Time Status Last Admin Dose Admin Hydralazine HCl 25 mg Q8HR PO 03/22/25 22:00 03/25/25 05:58 25 MG Metoprolol Succinate 100 mg DAILY PO 03/23/25 10:00 03/24/25 10:14 100 MG Diagnostic Test (Pha) 1 strip ACHS 03/22/25 22:00 03/25/25 17:12 1 STRIP Insulin Human Regular ACHS SC 03/22/25 22:00 03/25/25 17:21 2 UNITS Dextrose 50 ml UD PRN IV 03/22/25 22:00 Ondansetron HCl 4 mg Q4HP PRN IV 03/22/25 22:00 03/23/25 22:24 4 MG Acetaminophen 650 mg Q6HP PRN PO 03/22/25 22:00 Methylprednisolone Sodium Succinate 40 mg BID IV 03/23/25 10:00 03/25/25 10:43 40 MG Doxycycline Hyclate 100 ml @ 50 mls/hr Q12HR IV 03/23/25 11:15 03/25/25 10:39 50 MLS/HR Albuterol 2.5 mg Q4HR NEB 03/23/25 14:00 03/25/25 13:55 2.5 MG Ipratropium [place] 0.5 mg Q4HR NEB 03/23/25 14:00 03/25/25 13:55 0.5 MG Hydralazine HCl 10 mg Q6HP PRN IV 03/23/25 13:45 Laboratory Results Laboratory Tests 03/25/25 04:45 Chemistry Test 03/25/25 04:45 Albumin 4.3 g/dL (3.2-4.8) Calcium Level 9.8 mg/dL (8.7-10.4) Magnesium Level 1.7 mg/dL (1.6-2.6) Total Protein 8.1 g/dL (5.7-8.2) Lipid panel Test 03/25/25 04:45 Cholesterol Level 135 mg/dL (< 200) HDL Cholesterol 46 mg/dL (40-59) Triglycerides Level 75 mg/dL (< 150) LFT Test 03/25/25 04:45 Alanine Aminotransferase (ALT) 39 U/L (7-40) Alkaline Phosphatase 66 U/L (46-116) Aspartate Amino Transferase (AST) 39 U/L (13-40) Total Bilirubin 0.4 mg/dL (0.2-1.0) HgA1c, TSH Test 03/25/25 04:45 Thyroid Stimulating Hormone (TSH) 0.59 uIU/mL (0.55-4.78) Assessment/Plan Assessment/Plan Acute hypoxic respiratory failure due to COPD exacerbation COPD exacerbation Type 2 diabetes Hypertension Obstructive sleep apnea Hypertension Type 2 diabetes Plan Continue oxygen as needed Med neb treatments as needed Doxycycline IV IV steroids Solu-Medrol Full code Advance directives discussed with the patient for 15 minutes Check COVID and influenza A and B 03/24/2025: Continue oxygen as needed Steroids IV Med neb treatments as needed IV doxycycline Monitor closely The rest of the management will depend on the hospital course 03/25/25: Downgrade to Tele Abn EKG: Consult cardiology Continue IV steroids Doxycycline Plan discussed with: Patient My Orders Orders - SURESH HENSON MD Procedure Category Date Status Time * Cardiology Consult CONS 03/25/25 Transmitted 11:30 Transfer Orders XFER 03/25/25 Transmitted 14:50 Date of Service: March 25, 2025 Billing Provider: SURESH HENSON MD Common Visit Codes: [id number] INP/OBS CARE(HIGH) SURESH HENSON MD March 25, 2025 17:51
--- NOTE | 2025-03-25 21:41 | DVHINCON2 ---
Date of service: March 25, 2025 Referring Physician Rodrigo Fernandez MD Reason for Consultation Acute hypoxic respiratory failure and COPD exacerbation History of Present Illness A 55-year-old woman with past medical history of COPD, diabetes mellitus, and hypertension who presented to ED on 03/23/25 for evaluation of shortness of breath. Patient reported a 2-day history of shortness of breath not being relieved with her inhaler or nebulizer at home. She also reported a productive cough with clear phlegm. No fever or chills. No other acute complaints r eported. Patient was admitted for further care, and pulmonary consultation is requested for evaluation and management of acute hypoxic respiratory failure and COPD exacerbation. Review of Systems: 14-point review of systems negative unless otherwise noted above. Past Medical History: Diabetes mellitus, hypertension, COPD Past Surgical History: Cholecystectomy Medications: Reviewed. Allergies: Iodine. Family History: DM, hypertension, prostate cancer Social History: Smoker. No alcohol or illicit drug use. Family History: Alcoholism Diabetes mellitus Hypertension G8 MOTHER, Onset:Unknown G8 FATHER, Onset:Unknown Prostate carcinoma G8 FATHER, Onset:Unknown Allergies: Coded Allergies: Iodine (Verified Allergy, Unknown, 03/22/25) Home Meds Reported Medications Losartan Potassium & Hydrochlo (Losartan Potassium/Hydroc) 1 Tab Tab, 1 TAB PO DAILY for 90 Days, #90 [LOSARTAN-HYDROCHLO 100-12.5 MG] 03/23/25 Amlodipine Besylate (Amlodipine Besylate) 10 Mg Tab, 1 TAB PO DAILY for 90 Days, #90 03/23/25 Metoprolol Succinate (Metoprolol Succinate Er) 100 Mg Tab, 1 TAB PO DAILY for 90 Days, #90 03/23/25 Cholecalciferol (VITAMIN D3) 2,000 Unit Tab, 1 CAP PO DAILY for 90 Days, #90 03/23/25 Dapagliflozin Propanediol (Farxiga) 10 Mg Tab, 1 TAB PO DAILY for 30 Days, #30 03/23/25 Albuterol Sulfate (Albuterol Sulfate Hfa) 108 Mcg/Act Aer, 1 PUFF INH Q4HR PRN for 30 Days, #18 03/23/25 Metformin Hydrochloride (Metformin Hcl) 850 Mg Tab, 1 TAB PO BID for 90 Days, #180 03/23/25 Hydralazine HCl (Hydralazine HCl) 25 Mg Tab, 1 TAB PO TID for 30 Days, #180 TAKE 1 TABLET BY MOUTH 3 TIMES A DAY FOR BLOOD PRESSURE > 150. (TAKE 2 TABLETS 3 TIMES DAILY IF > 170). 03/23/25 Amoxicillin Trihydrate (Amoxicillin) 500 Mg Cap, 1 CAP PO Q8HR for 7 Days, #21 03/23/25 Vital Signs Vital Signs Date Time Temp Pulse Resp B/P (MAP) Pulse Ox O2 Delivery O2 Flow Rate FiO2 03/25/25 19:58 71 18 125/86 96 2.0 28 03/25/25 18:37 Nasal Cannula* 03/25/25 17:45 97.5 97.5 Physical Exam Gen.: Patient lying in bed in no apparent distress. On supplemental oxygen. Head: Normocephalic, atraumatic. Eyes: EOMI/PERRLA. Ears: Normal hearing. Normal anatomy. Neck/trachea: Trachea midline, supple. Nose: Normal external anatomy. Mouth: Moist mucous membranes. Chest: Decreased air entry bilaterally. No wheezing or rhonchi. Cardiovascular: Positive S1, positive S2. Regular rate and rhythm. Abdomen: Positive bowel sounds in all 4 quadrants. Soft, non-tender, non- distended. : Deferred. Rectal: Deferred. Skin: Warm, dry. Intact. Extremities: 2+ radial pulses bilaterally. No lower extremity edema. Neuro: Awake, alert, oriented x3. No gross motor or sensory deficits. Cranial nerves II through XII intact. Gait not assessed. Labs/Diagnostic Data Labs Test 03/25/25 11:33 03/25/25 04:45 03/23/25 15:48 03/23/25 02:51 Range/Units POC Glucose 133 H 70-106 mg/dl White Blood Count 7.6 # 4.4-10.8 10^3/uL Red Blood Count 5.26 H 4.0-5.20 10^6/uL Hemoglobin 15.6 12.2-16.2 g/dL Hematocrit 47.1 H 36.0-46.0 % Mean Corpuscular Volume 89.5 80.0-100.0 fL Mean Corpuscular Hemoglobin 29.6 28.0-32.0 pg Mean Corpuscular Hemoglobin Concent 33.1 32.0-36.0 g/dL Red Cell Distribution Width 14.5 H 11.8-14.3 % Platelet Count 206 140-450 10^3/uL Mean Platelet Volume 10.7 6.9-10.8 fL Neutrophils (%) (Auto) 67.0 37.0-80.0 % Lymphocytes (%) (Auto) 27.4 10.0-50.0 % Monocytes (%) (Auto) 4.9 0.0-12.0 % Eosinophils (%) (Auto) 0.1 0.0-7.0 % Basophils (%) (Auto) 0.6 0.0-2.0 % Neutrophils # (Auto) 5.1 1.6-8.6 10 ^3/uL Lymphocytes # (Auto) 2.1 0.4-5.4 10 ^3/uL Monocytes # (Auto) 0.4 0-1.3 10 ^3/uL Eosinophils # (Auto) 0 0-0.8 10 ^3/uL Basophils # (Auto) 0 0-0.2 10 ^3/uL Nucleated Red Blood Cells 0.6 % Platelet Estimate Adequate Large Platelets Few Giant Platelets Few Sodium Level 136 136-145 mmol/L Potassium Level 5.1 3.5-5.1 mmol/L Chloride Level 102 98-107 mmol/L Carbon Dioxide Level 30 20-31 mmol/L Anion Gap 4 L 5-15 Blood Urea Nitrogen 23 # 9-23 mg/dL Creatinine 1.34 H 0.550-1.02 mg/dL Glomerular Filtration Rate Calc 47 >90 mL/min BUN/Creatinine Ratio 17.2 10.0-20.0 Serum Glucose 146 H 74-106 mg/dL Calcium Level 9.8 8.7-10.4 mg/dL Magnesium Level 1.7 1.6-2.6 mg/dL Total Bilirubin 0.4 0.2-1.0 mg/dL Aspartate Amino Transferase (AST) 39 13-40 U/L Alanine Aminotransferase (ALT) 39 7-40 U/L Alkaline Phosphatase 66 46-116 U/L Troponin I High Sensitivity 10 </=34 ng/L Total Protein 8.1 5.7-8.2 g/dL Albumin 4.3 3.2-4.8 g/dL Triglycerides Level 75 < 150 mg/dL Cholesterol Level 135 < 200 mg/dL LDL Cholesterol 73 < 100 mg/dL HDL Cholesterol 46 40-59 mg/dL Thyroid Stimulating Hormone (TSH) 0.59 0.55-4.78 uIU/mL Influenza Type A Antigen Negative Negative Influenza Type B Antigen Negative Negative SARS-CoV-2 Antigen (Rapid) Negative NEGATIVE Blood Gas Specimen Type Arterial Blood Gas Sample Site Right radial Blood Gas Patient Temperature 37.0 Arterial Blood Date Drawn Arterial Blood pH 7.425 7.350-7.450 Arterial Blood Partial Pressure CO2 35.8 32.0-45.0 mmHg Arterial Blood Partial Pressure O2 70.5 L 83.0-108.0 mmHg Arterial Blood HCO3 23.0 21.0-28.0 mmol/L Arterial Blood Oxygen Saturation 93.9 L 94.0-98.0 % Arterial Blood Base Excess -0.8 -2.0-3.0 mmol/L Arterial Blood Oxyhemoglobin 92.9 L 94.0-98.0 % Arterial Blood Carboxyhemoglobin 0.5 0.5-1.5 % Arterial Blood Methemoglobin 0.6 0.0-1.5 % Bobby Test Modified Blood Gas Total Hemoglobin 15.90 12.0-16.0 g/dL Blood Gas Liter Flow 45.00 Blood Gas Modality High flow FiO2 % 35.0 Test 03/22/25 22:17 03/22/25 17:05 Range/Units D-Dimer, Quantitative 0.32 0.0-0.49 mg/L FEU B-Type Natriuretic Peptide 34.99 0-100 pg/mL Assessment Impression: Acute hypoxic respiratory failure Dependence on supplemental oxygen Acute exacerbation of COPD Nicotine dependence Obesity, BMI 39.3 Plan: Supplemental oxygen 3 LPM NC Titrate to keep O2 sats above 92%. Taper O2 as tolerated. Continue bronchodilators. Continue antibiotics IV steroids Accu-Cheks, ISS. Monitor renal function. Monitor electrolytes. Supplement as necessary. Monitor ins and outs. Diet and lifestyle modifications for weight reduction Obesity - complicates all care Smokes 5 cigs/day. Smoking cessation discussed for greater than 10 minutes DVT prophylaxis. Prognosis: Poor given patient's multiple co-morbidities. Rest of plan per hospitalist and other consultants. Thank you Dr. Fernandez for allowing me to participate in this patient's care. Further recommendations will depend on the patient's clinical course. Please do not hesitate to contact me if you have any questions or concerns. This medical document was created using an electronic medical record system with [employer] dictation system. Although these documentations are being carefully reviewed, there may still be some phonetic and typographical changes. The errors are purely typographical, due to imperfection on the software program, and do not reflect any compromise in the patient's medical care. Plan discussed with: Patient, Other (BARI Feldman/Dr. Fernandez) THEODORE SALGUERO MD March 25, 2025 21:41
[2025-03-26] VITALS (20 sets, daily range): BP systolic 108–141; BP diastolic 72–94; PULSE 62–84; RESP 16–20; TEMP 97.6–98.5; O2SAT 92–100
[2025-03-26 08:12] LABS: Anion Gap 6 (5-15); Carbon Dioxide 30 mmol/L (20-31); Chloride 102 mmol/L (98-107); Potassium 4.5 mmol/L (3.5-5.1); Sodium 138 mmol/L (136-145)
[2025-03-26 08:18] LABS: BUN/Creatinine Ratio 16.7 (10.0-20.0); Blood Urea Nitrogen 20 mg/dL (9-23)
[2025-03-26 08:19] LABS: Magnesium 1.6 mg/dL (1.6-2.6)
[2025-03-26 08:26] LABS: Glucose 128 mg/dL (74-106)
--- NOTE | 2025-03-26 10:39 | DVHPN2 ---
Subjective No new complaints Less short of breath She is on 2 L nasal cannula Changes from previous H/P or p: Changes Objective Vitals Vital Signs Date Time Temp Pulse Resp B/P (MAP) Pulse Ox O2 Delivery O2 Flow Rate FiO2 03/26/25 09:34 86 110/72 03/26/25 08:41 98.3 19 100 98.3 03/26/25 08:00 Nasal Cannula* 3 32 Intake/Output Intake and Output 03/26/25 07:00 Intake Total 1300 ml Balance 1300 ml Intake Oral 1100 ml IV Total 200 ml # Voids 6 General Appearance: Alert, Oriented X3, moderate distress Lungs: Other (Diffuse wheezing) Cardiovascular: Regular rate, Normal S1, Normal S2 Abdomen: Normal bowel sounds, Soft, No tenderness Medications Current Medications Medications Dose Ordered Sig/Jimena Route Start Time Stop Time Status Last Admin Dose Admin Hydralazine HCl 25 mg Q8HR PO 03/22/25 22:00 03/26/25 06:01 25 MG Metoprolol Succinate 100 mg DAILY PO 03/23/25 10:00 03/26/25 09:34 100 MG Diagnostic Test (Pha) 1 strip ACHS 03/22/25 22:00 03/26/25 06:05 1 STRIP Insulin Human Regular ACHS SC 03/22/25 22:00 03/26/25 06:11 3 UNITS Dextrose 50 ml UD PRN IV 03/22/25 22:00 Ondansetron HCl 4 mg Q4HP PRN IV 03/22/25 22:00 03/23/25 22:24 4 MG Acetaminophen 650 mg Q6HP PRN PO 03/22/25 22:00 Methylprednisolone Sodium Succinate 40 mg BID IV 03/23/25 10:00 03/26/25 09:34 40 MG Doxycycline Hyclate 100 ml @ 50 mls/hr Q12HR IV 03/23/25 11:15 03/26/25 09:34 50 MLS/HR Albuterol 2.5 mg Q4HR NEB 03/23/25 14:00 03/26/25 07:57 2.5 MG Ipratropium [place] 0.5 mg Q4HR NEB 03/23/25 14:00 03/26/25 07:57 0.5 MG Hydralazine HCl 10 mg Q6HP PRN IV 03/23/25 13:45 Laboratory Results Laboratory Tests 03/25/25 04:45 03/26/25 07:02 Chemistry Test 03/26/25 07:02 Calcium Level 10.0 mg/dL (8.7-10.4) Magnesium Level 1.6 mg/dL (1.6-2.6) Assessment/Plan Assessment/Plan Acute hypoxic respiratory failure due to COPD exacerbation COPD exacerbation Type 2 diabetes Hypertension Obstructive sleep apnea Hypertension Type 2 diabetes Plan Continue oxygen as needed Med neb treatments as needed Doxycycline IV IV steroids Solu-Medrol Full code Advance directives discussed with the patient for 15 minutes Check COVID and influenza A and B 03/24/2025: Continue oxygen as needed Steroids IV Med neb treatments as needed IV doxycycline Monitor closely The rest of the management will depend on the hospital course 03/25/25: Downgrade to Tele Abn EKG: Consult cardiology Continue IV steroids Doxycycline 03/26/2025: Continue the current management Tapered down the oxygen as tolerated Continue the doxycycline and IV steroids Med neb as needed Discharge planning for tomorrow Plan discussed with: Patient My Orders Orders - SURESH HENSON MD Procedure Category Date Status Time * Cardiology Consult CONS 03/25/25 Transmitted 11:30 Transfer Orders XFER 03/25/25 Transmitted 14:50 Date of Service: March 26, 2025 Billing Provider: SURESH HENSON MD Common Visit Codes: [id number] INP/OBS CARE(HIGH) SURESH HENSON MD March 26, 2025 10:39
--- NOTE | 2025-03-26 23:09 | DVHPN2 ---
Progress Note - Dictate Date Seen: March 26, 2025 Medical Necessity Reason Pt with a Central, PICC or Fol: No Subjective Patient seen and examined at bedside. Breathing comfortably on room air. Overnight events reviewed. vital signs Vital Sign Date Time Temp Pulse Resp B/P (MAP) Pulse Ox O2 Delivery O2 Flow Rate FiO2 03/26/25 22:19 72 18 100 03/26/25 22:00 121/79 03/26/25 20:00 Nasal Cannula* 3 32 03/26/25 16:56 98.5 98.5 Total Intake and Output 03/25/25 03/25/25 03/26/25 15:00 23:00 07:00 Intake Total 100 ml 1200 ml Balance 100 ml 1200 ml medications Current Medications Medications Dose Ordered Sig/Jimena Route Start Time Stop Time Status Last Admin Dose Admin Hydralazine HCl 25 mg Q8HR PO 03/22/25 22:00 03/26/25 22:00 25 MG Metoprolol Succinate 100 mg DAILY PO 03/23/25 10:00 03/26/25 09:34 100 MG Diagnostic Test (Pha) 1 strip ACHS 03/22/25 22:00 03/26/25 22:03 1 STRIP Insulin Human Regular ACHS SC 03/22/25 22:00 03/26/25 06:11 3 UNITS Dextrose 50 ml UD PRN IV 03/22/25 22:00 Ondansetron HCl 4 mg Q4HP PRN IV 03/22/25 22:00 03/23/25 22:24 4 MG Acetaminophen 650 mg Q6HP PRN PO 03/22/25 22:00 Methylprednisolone Sodium Succinate 40 mg BID IV 03/23/25 10:00 03/26/25 21:39 40 MG Doxycycline Hyclate 100 ml @ 50 mls/hr Q12HR IV 03/23/25 11:15 03/26/25 21:39 50 MLS/HR Albuterol 2.5 mg Q4HR NEB 03/23/25 14:00 03/26/25 22:09 2.5 MG Ipratropium [place] 0.5 mg Q4HR NEB 03/23/25 14:00 03/26/25 22:09 0.5 MG Hydralazine HCl 10 mg Q6HP PRN IV 03/23/25 13:45 objective Gen.: Patient lying in bed in no apparent distress. Breathing on room air. Head: Normocephalic, atraumatic. Eyes: EOMI/PERRLA. Ears: Normal hearing. Normal anatomy. Neck/trachea: Trachea midline, supple. Nose: Normal external anatomy. Mouth: Moist mucous membranes. Chest: Decreased air entry bilaterally. Wheezing present. No rhonchi. Cardiovascular: Positive S1, positive S2. Regular rate and rhythm. Abdomen: Positive bowel sounds in all 4 quadrants. Soft, non-tender, non- distended. : Deferred. Rectal: Deferred. Skin: Warm, dry. Intact. Extremities: 2+ radial pulses bilaterally. No lower extremity edema. Neuro: Awake, alert, oriented x3. No gross motor or sensory deficits. Cranial nerves II through XII intact. Gait not assessed. laboratory and microbiology Laboratory Tests 03/26/25 07:02 03/25/25 04:45 Test 03/26/25 07:02 Range/Units Serum Glucose 128 H 74-106 mg/dL Assessment/Plan Impression: Acute hypoxic respiratory failure Dependence on supplemental oxygen Acute exacerbation of COPD Nicotine dependence Obesity, BMI 39.3 Events: Currently on room air Supplemental oxygen PRN Continue bronchodilators Continue antibiotics Pt remains with wheezing Continue IV steroids Slowly improving. Labs and imaging reviewed. Rest of plan as noted below. Plan: Supplemental oxygen Titrate to keep O2 sats above 92%. Continue bronchodilators. Continue antibiotics IV steroids Accu-Cheks, ISS. Monitor renal function. Monitor electrolytes. Supplement as necessary. Monitor ins and outs. Diet and lifestyle modifications for weight reduction Obesity - complicates all care Smokes 5 cigs/day. Smoking cessation discussed for greater than 10 minutes DVT prophylaxis. Prognosis: Poor given patient's multiple co-morbidities. Rest of plan per hospitalist and other consultants. Thank you Dr. Fernandez for allowing me to participate in this patient's care. Further recommendations will depend on the patient's clinical course. Please do not hesitate to contact me if you have any questions or concerns. This medical document was created using an electronic medical record system with [employer] system. Although these documentations are being carefully reviewed, there may still be some phonetic and typographical changes. The errors are purely typographical, due to imperfection on the software program, and do not reflect any compromise in the patient's medical care. Dietary Evaluation Review Recommendations by RD: Dietary education by RD Comments: 1) Encourage optimal PO intake 2) Refer to outpatient RD for weight management 3) Follow-up with pulmonology and nephrology 4) Continue to monitor I&O, labs, and skin integrity Expected Outcomes/Goals: 1) appetite and labs to improve 2) follow-up in 3-5 days Plan discussed with: Patient, Other (BARI Davis) THEODORE SALGUERO MD March 26, 2025 23:09
--- NOTE | 2025-03-26 23:54 | DVHPN2 ---
Progress Note - Dictate Date Seen: March 26, 2025 Medical Necessity Reason Pt with a Central, PICC or Fol: No Subjective Patient was seen and evaluated in follow up. Patient is on 3 LPM NC. Patient is complaining of generalized discomfort. SOB is improving. Telemetry reviewed. vital signs Vital Sign Date Time Temp Pulse Resp B/P (MAP) Pulse Ox O2 Delivery O2 Flow Rate FiO2 03/26/25 16:56 98.5 77 20 117/81 (93) 96 98.5 03/26/25 11:00 Room Air* 0 21 Total Intake and Output 03/25/25 03/25/25 03/26/25 15:00 23:00 07:00 Intake Total 100 ml 1200 ml Balance 100 ml 1200 ml medications Current Medications Medications Dose Ordered Sig/Jimena Route Start Time Stop Time Status Last Admin Dose Admin Hydralazine HCl 25 mg Q8HR PO 03/22/25 22:00 03/26/25 14:18 25 MG Metoprolol Succinate 100 mg DAILY PO 03/23/25 10:00 03/26/25 09:34 100 MG Diagnostic Test (Pha) 1 strip ACHS 03/22/25 22:00 03/26/25 17:28 1 STRIP Insulin Human Regular ACHS SC 03/22/25 22:00 03/26/25 06:11 3 UNITS Dextrose 50 ml UD PRN IV 03/22/25 22:00 Ondansetron HCl 4 mg Q4HP PRN IV 03/22/25 22:00 03/23/25 22:24 4 MG Acetaminophen 650 mg Q6HP PRN PO 03/22/25 22:00 Methylprednisolone Sodium Succinate 40 mg BID IV 03/23/25 10:00 03/26/25 09:34 40 MG Doxycycline Hyclate 100 ml @ 50 mls/hr Q12HR IV 03/23/25 11:15 03/26/25 09:34 50 MLS/HR Albuterol 2.5 mg Q4HR NEB 03/23/25 14:00 03/26/25 14:20 2.5 MG Ipratropium [place] 0.5 mg Q4HR NEB 03/23/25 14:00 03/26/25 14:20 0.5 MG Hydralazine HCl 10 mg Q6HP PRN IV 03/23/25 13:45 objective GENERAL: Alert and oriented x 3. No acute distress. EYES: PERRL, EOMI. Anicteric. HENT: Moist mucous membranes. LUNGS: Coarse breath sounds. CARDIOVASCULAR: Regular rate and rhythm. ABDOMEN: Soft, nontender and nondistended. EXTREMITIES: No edema. NEUROLOGIC: No focal neurological deficits. SKIN: Warm, dry. laboratory and microbiology Laboratory Tests 03/26/25 07:02 03/25/25 04:45 Test 03/26/25 07:02 Range/Units Serum Glucose 128 H 74-106 mg/dL Problem List Acute COPD exacerbation. Acute on chronic hypoxic respiratory failure. LUC with CPAP HS. Hypertension. [id number] diabetes mellitus. Chronic kidney disease. Nicotine dependence. Assessment/Plan Continued all current supportive medical care. IV antibiotics as ordered. IV Hydralazine for SBP >150. Hydralazine. Metoprolol. Additional plan as per the hospital course. Dietary Evaluation Review Recommendations by RD: Dietary education by RD Comments: 1) Encourage optimal PO intake 2) Refer to outpatient RD for weight management 3) Follow-up with pulmonology and nephrology 4) Continue to monitor I&O, labs, and skin integrity Expected Outcomes/Goals: 1) appetite and labs to improve 2) follow-up in 3-5 days Plan discussed with: Patient BA JEWELL MD March 26, 2025 17:42
[2025-03-27] VITALS (14 sets, daily range): BP systolic 118–124; BP diastolic 80–93; PULSE 65–81; RESP 16–18; TEMP 97.2–98.7; O2SAT 92–100
--- NOTE | 2025-03-27 02:03 | DVHSR ---
APPROVED REPORT EXAM: LIMITED Two-dimensional and M-mode echocardiogram with Doppler and color Doppler. Blood Pressure: 120/81 mmHg INDICATION abn ekg RISK FACTORS Height: 5'2, Weight: 182 DIMENSIONS LVDd (3.8-5.7cm)LA (2D)3.3 (1.9-4.0cm)Aortic Root3.3 (2.0-3.7cm) LVDs (2.5-4.0cm)LA (MM) (1.9-4.0cm)Aortic Cusp Exc1.9 (1.5-2.0cm) EF (%) 60.0 (55-70%)Rt. Atrium (1.9-4.0cm)Asc. Aorta cm Mitral Valve MitralMitral Stenosis E wave0.66m/sMV Mean GR.mmHg A wave0.75m/sMV Peak GR.mmHg E/A ratio0.92D MVAcm2 DECEL [id number] 1/2 Tim[place] Aortic Valve Aortic ValveAortic Stenosis V11.26m/Jorge Luis Mean GR.mmHg V21.07m/Jorge Luis Peak GR.5mmHg LVOT Diameter1.7 (1.8-2.4cm)Doppler AVA2.67cm2 Other Information Quality : Technically LimitedRhythm : Technically limited study due to pt unable to lay down sitting all the way up. Conclusion MILD LVH AND MILD LV DIASTOLIC DYSFUNCTION LV EF IS 65% DYSKINESIS OF IVS SLIGHTLY DILATED RV NORMAL VALVES NO EFFUSION
[2025-03-27] MEDS ORDERED: DOXY1CAP57 PO (11:47)
[2025-03-27] MEDS ORDERED: METH4PAK PO (11:47)
--- NOTE | 2025-03-27 11:49 | DVHDS2 ---
Discharge Summary Date of Admission March 22, 2025 at 21:59 Date of Discharge: March 27, 2025 Labs/Diagnostic Data: Laboratory Results Test 03/26/25 17:25 03/26/25 07:02 03/25/25 04:45 03/23/25 15:48 POC Glucose 126 mg/dl (70-106) Sodium Level 138 mmol/L (136-145) Potassium Level 4.5 mmol/L (3.5-5.1) Chloride Level 102 mmol/L (98-107) Carbon Dioxide Level 30 mmol/L (20-31) Anion Gap 6 (5-15) Blood Urea Nitrogen 20 mg/dL (9-23) Creatinine 1.20 mg/dL (0.550-1.02) Glomerular Filtration Rate Calc 54 mL/min (>90) BUN/Creatinine Ratio 16.7 (10.0-20.0) Serum Glucose 128 mg/dL (74-106) Calcium Level 10.0 mg/dL (8.7-10.4) Magnesium Level 1.6 mg/dL (1.6-2.6) White Blood Count 7.6 10^3/uL (4.4-10.8) Red Blood Count 5.26 10^6/uL (4.0-5.20) Hemoglobin 15.6 g/dL (12.2-16.2) Hematocrit 47.1 % (36.0-46.0) Mean Corpuscular Volume 89.5 fL (80.0-100.0) Mean Corpuscular Hemoglobin 29.6 pg (28.0-32.0) Mean Corpuscular Hemoglobin Concent 33.1 g/dL (32.0-36.0) Red Cell Distribution Width 14.5 % (11.8-14.3) Platelet Count 206 10^3/uL (140-450) Mean Platelet Volume 10.7 fL (6.9-10.8) Neutrophils (%) (Auto) 67.0 % (37.0-80.0) Lymphocytes (%) (Auto) 27.4 % (10.0-50.0) Monocytes (%) (Auto) 4.9 % (0.0-12.0) Eosinophils (%) (Auto) 0.1 % (0.0-7.0) Basophils (%) (Auto) 0.6 % (0.0-2.0) Neutrophils # (Auto) 5.1 10 ^3/uL (1.6-8.6) Lymphocytes # (Auto) 2.1 10 ^3/uL (0.4-5.4) Monocytes # (Auto) 0.4 10 ^3/uL (0-1.3) Eosinophils # (Auto) 0 10 ^3/uL (0-0.8) Basophils # (Auto) 0 10 ^3/uL (0-0.2) Nucleated Red Blood Cells 0.6 % Platelet Estimate Adequate Large Platelets Few Giant Platelets Few Total Bilirubin 0.4 mg/dL (0.2-1.0) Aspartate Amino Transferase (AST) 39 U/L (13-40) Alanine Aminotransferase (ALT) 39 U/L (7-40) Alkaline Phosphatase 66 U/L (46-116) Troponin I High Sensitivity 10 ng/L (</=34) Total Protein 8.1 g/dL (5.7-8.2) Albumin 4.3 g/dL (3.2-4.8) Triglycerides Level 75 mg/dL (< 150) Cholesterol Level 135 mg/dL (< 200) LDL Cholesterol 73 mg/dL (< 100) HDL Cholesterol 46 mg/dL (40-59) Thyroid Stimulating Hormone (TSH) 0.59 uIU/mL (0.55-4.78) Influenza Type A Antigen Negative (Negative) Influenza Type B Antigen Negative (Negative) SARS-CoV-2 Antigen (Rapid) Negative (NEGATIVE) Test 03/23/25 02:51 03/22/25 22:17 03/22/25 17:05 Blood Gas Specimen Type Arterial Blood Gas Sample Site Right radial Blood Gas Patient Temperature 37.0 Arterial Blood Date Drawn [id number] Arterial Blood pH 7.425 (7.350-7.450) Arterial Blood Partial Pressure CO2 35.8 mmHg (32.0-45.0) Arterial Blood Partial Pressure O2 70.5 mmHg (83.0-108.0) Arterial Blood HCO3 23.0 mmol/L (21.0-28.0) Arterial Blood Oxygen Saturation 93.9 % (94.0-98.0) Arterial Blood Base Excess -0.8 mmol/L (-2.0-3.0) Arterial Blood Oxyhemoglobin 92.9 % (94.0-98.0) Arterial Blood Carboxyhemoglobin 0.5 % (0.5-1.5) Arterial Blood Methemoglobin 0.6 % (0.0-1.5) Bobby Test Modified Blood Gas Total Hemoglobin 15.90 g/dL (12.0-16.0) Blood Gas Liter Flow 45.00 Blood Gas Modality High flow FiO2 % 35.0 D-Dimer, Quantitative 0.32 mg/L FEU (0.0-0.49) B-Type Natriuretic Peptide 34.99 pg/mL (0-100) Other Laboratory Tests 03/26/25 07:02 03/25/25 04:45 Brief Hx & Hospital Course: Final diagnoses: Acute hypoxic respiratory failure due to COPD exacerbation COPD exacerbation Type 2 diabetes Hypertension Obstructive sleep apnea Hypertension Type 2 diabetes She was admitted and treated for acute respiratory failure due to COPD exacerbation and was initially on high-flow oxygen and then was given IV steroids and med neb treatments and IV antibiotics Gradually she improved She came off the high-flow and stayed on nasal cannula Today she is doing good on room air She still has minimal wheezing bilaterally diffusely but she is feeling better and back to her normal and therefore she can go home Discharged home on Medrol Dosepak and doxycycline for 5 days Resume home medications Follow up with her primary care physician as soon as possible Condition at Discharge: Stable Final Diagnosis/Problems List Acute hypoxic respiratory failure due to COPD exacerbation COPD exacerbation Type 2 diabetes Hypertension Obstructive sleep apnea Hypertension Type 2 diabetes Discharge Disposition: Home SNF Discharge Will this Physician continue t: No Discharge Statement: "Patient was advised to return to the ER or call 911 if any headaches, dizziness, shortness of breath, chest pain, abdominal pain, bleeding, fevers, or worsening of medical condition. Patient was counseled about treatment plan, medications, possible side effects, patientverbalized understanding. All questions were answered to the best of my ability. This discharge took greater then 30 minutes in planning, reviewing documentation, counseling the patient, and discussing with other team members." ASSESSMENT ASSESSMENT Assessment Date of Service: March 27, 2025 Billing Provider: SURESH HENSON MD Common Visit Codes: [id number] DISCH DAY >30min SURESH HENSON MD March 27, 2025 11:49
--- NOTE | 2025-03-27 22:52 | DVHPN2 ---
Progress Note - Dictate Date Seen: March 27, 2025 Medical Necessity Reason Pt with a Central, PICC or Fol: No Subjective Patient was seen and evaluated in follow up. Patient has no new complaints at this time. Patient denies any cardiac symptoms. Patient is cardiac stable for discharge. Telemetry reviewed. vital signs Vital Sign Date Time Temp Pulse Resp B/P (MAP) Pulse Ox O2 Delivery O2 Flow Rate FiO2 03/27/25 15:15 126/91 03/27/25 15:00 71 16 98 03/27/25 14:13 97.4 03/27/25 10:40 Room Air 0.0 03/27/25 10:40 21 Total Intake and Output 03/26/25 03/26/25 03/27/25 15:00 23:00 07:00 Intake Total 100 ml 600 ml 820 ml Balance 100 ml 600 ml 820 ml medications Current Medications Medications Dose Ordered Sig/Jimena Route Start Time Stop Time Status Last Admin Dose Admin Hydralazine HCl 25 mg Q8HR PO 03/22/25 22:00 03/27/25 15:15 25 MG Metoprolol Succinate 100 mg DAILY PO 03/23/25 10:00 03/27/25 08:56 100 MG Diagnostic Test (Pha) 1 strip ACHS 03/22/25 22:00 03/27/25 11:30 1 STRIP Insulin Human Regular ACHS SC 03/22/25 22:00 03/27/25 05:59 3 UNITS Dextrose 50 ml UD PRN IV 03/22/25 22:00 Ondansetron HCl 4 mg Q4HP PRN IV 03/22/25 22:00 03/23/25 22:24 4 MG Acetaminophen 650 mg Q6HP PRN PO 03/22/25 22:00 Methylprednisolone Sodium Succinate 40 mg BID IV 03/23/25 10:00 03/27/25 08:47 40 MG Doxycycline Hyclate 100 ml @ 50 mls/hr Q12HR IV 03/23/25 11:15 03/27/25 08:49 50 MLS/HR Albuterol 2.5 mg Q4HR NEB 03/23/25 14:00 03/27/25 15:01 2.5 MG Ipratropium [place] 0.5 mg Q4HR NEB 03/23/25 14:00 03/27/25 15:01 0.5 MG Hydralazine HCl 10 mg Q6HP PRN IV 03/23/25 13:45 objective GENERAL: Alert and oriented x 3. No acute distress. EYES: PERRL, EOMI. Anicteric. HENT: Moist mucous membranes. LUNGS: Coarse breath sounds. CARDIOVASCULAR: Regular rate and rhythm. ABDOMEN: Soft, nontender and nondistended. EXTREMITIES: No edema. NEUROLOGIC: No focal neurological deficits. SKIN: Warm, dry. laboratory and microbiology Laboratory Tests 03/26/25 07:02 03/25/25 04:45 Test 03/26/25 07:02 Range/Units Serum Glucose 128 H 74-106 mg/dL Problem List Acute COPD exacerbation. Acute on chronic hypoxic respiratory failure. LUC with CPAP HS. Hypertension. Oka-wtfexha-gbuqhkarc diabetes mellitus. Chronic kidney disease. Nicotine dependence. Assessment/Plan Continued all current supportive medical care. IV antibiotics as ordered. IV Hydralazine for SBP >150. Hydralazine. Metoprolol. Additional plan as per the hospital course. Dietary Evaluation Review Recommendations by RD: Dietary education by RD Comments: 1) Encourage optimal PO intake 2) Refer to outpatient RD for weight management 3) Follow-up with pulmonology and nephrology 4) Continue to monitor I&O, labs, and skin integrity Expected Outcomes/Goals: 1) appetite and labs to improve 2) follow-up in 3-5 days Plan discussed with: Patient BA JEWELL MD March 27, 2025 15:34
--- NOTE | 2025-03-27 23:02 | DVHPN2 ---
Progress Note - Dictate Date Seen: March 27, 2025 Medical Necessity Reason Pt with a Central, PICC or Fol: No Subjective Patient seen and examined at bedside. Breathing comfortably on room air. Overnight events reviewed. vital signs Vital Sign Date Time Temp Pulse Resp B/P (MAP) Pulse Ox O2 Delivery O2 Flow Rate FiO2 03/27/25 15:15 126/91 03/27/25 15:00 71 16 98 03/27/25 14:13 97.4 03/27/25 10:40 Room Air 0.0 03/27/25 10:40 21 Total Intake and Output 03/26/25 03/26/25 03/27/25 15:00 23:00 07:00 Intake Total 100 ml 600 ml 820 ml Balance 100 ml 600 ml 820 ml objective Gen.: Patient lying in bed in no apparent distress. Breathing on room air. Head: Normocephalic, atraumatic. Eyes: EOMI/PERRLA. Ears: Normal hearing. Normal anatomy. Neck/trachea: Trachea midline, supple. Nose: Normal external anatomy. Mouth: Moist mucous membranes. Chest: Decreased air entry bilaterally. Wheezing present. No rhonchi. Cardiovascular: Positive S1, positive S2. Regular rate and rhythm. Abdomen: Positive bowel sounds in all 4 quadrants. Soft, non-tender, non- distended. : Deferred. Rectal: Deferred. Skin: Warm, dry. Intact. Extremities: 2+ radial pulses bilaterally. No lower extremity edema. Neuro: Awake, alert, oriented x3. No gross motor or sensory deficits. Cranial nerves II through XII intact. Gait not assessed. laboratory and microbiology Laboratory Tests 03/26/25 07:02 03/25/25 04:45 Test 03/26/25 07:02 Range/Units Serum Glucose 128 H 74-106 mg/dL Assessment/Plan Impression: Acute hypoxic respiratory failure Acute exacerbation of COPD Nicotine dependence Obesity, BMI 39.3 Events: Remains on room air Supplemental oxygen PRN Continue bronchodilators Steroids - transition to prednisone Slowly improving. Follow up in Pulmonary Clinic in 14-21 days. Labs and imaging reviewed. Rest of plan as noted below. Plan: Supplemental oxygen PRN Titrate to keep O2 sats above 92%. Continue bronchodilators. Continue steroids Accu-Cheks, ISS. Monitor renal function. Monitor electrolytes. Supplement as necessary. Monitor ins and outs. Diet and lifestyle modifications for weight reduction Obesity - complicates all care Smokes 5 cigs/day. Smoking cessation discussed for greater than 10 minutes DVT prophylaxis. Prognosis: Guarded given patient's multiple co-morbidities. Rest of plan per hospitalist and other consultants. Thank you Dr. Fernandez for allowing me to participate in this patient's care. Further recommendations will depend on the patient's clinical course. Please do not hesitate to contact me if you have any questions or concerns. This medical document was created using an electronic medical record system with [employer] dictation system. Although these documentations are being carefully reviewed, there may still be some phonetic and typographical changes. The errors are purely typographical, due to imperfection on the software program, and do not reflect any compromise in the patient's medical care. Dietary Evaluation Review Recommendations by RD: Dietary education by RD Comments: 1) Encourage optimal PO intake 2) Refer to outpatient RD for weight management 3) Follow-up with pulmonology and nephrology 4) Continue to monitor I&O, labs, and skin integrity Expected Outcomes/Goals: 1) appetite and labs to improve 2) follow-up in 3-5 days Plan discussed with: Patient, Other (BARI Magana) THEODORE SALGUERO MD March 27, 2025 23:02
== END 2025-03-27 15:30 | disposition home or self-care (01) | DRG 140 ==
LOC: ER 16:51 → OVERFLOW 21:59 → TELE-EAST 03-25 16:49
PROVIDERS: ADMIT Internal Medicine Geriatric Medicine; ATTEND Internal Medicine Geriatric Medicine
PROC: 5A0945A Assistance with Respiratory Ventilation, 24-96 Consecutive Hours, High Flow/Velocity Cannula (ICD-10-PCS; principal; 2025-03-23)
DX: J44.1 Chronic obstructive pulmonary disease with (acute) exacerbation (principal); J96.21 Acute and chronic respiratory failure with hypoxia; N17.9 Acute kidney failure, unspecified; Z99.81 Dependence on supplemental oxygen; E11.22 Type 2 diabetes mellitus with diabetic chronic kidney disease; I13.10 Hypertensive heart and chronic kidney disease without heart failure, with stage 1 through stage 4 chronic kidney disease, or unspecified chronic kidney disease; E66.9 Obesity, unspecified; N18.9 Chronic kidney disease, unspecified; Z68.39 Body mass index [BMI] 39.0-39.9, adult; G47.33 Obstructive sleep apnea (adult) (pediatric); I16.0 Hypertensive urgency; F17.200 Nicotine dependence, unspecified, uncomplicated; Z91.041 Radiographic dye allergy status; Z83.3 Family history of diabetes mellitus; Z82.49 Family history of ischemic heart disease and other diseases of the circulatory system; Z79.84 Long term (current) use of oral hypoglycemic drugs; Z90.49 Acquired absence of other specified parts of digestive tract
CPT/HCPCS: 36415; 36600; 71045; 80048; 80053; 80061; 82805; 82962; 83735; 83880; 84443; 84484; 85025; 85379; 87426; 87804; 93005; 93306; 94640; 96374; 96375; G0378; J1815; J2405

== ENCOUNTER 2025-04-30 11:36 | Inpatient (IN) | payer MEDICAID ==
[2025-04-30] VITALS (7 sets, daily range): BP systolic 137; BP diastolic 101; PULSE 71–88; RESP 14–24; TEMP 97.6; O2SAT 92–100
[~2025-04-30] VITALS: Ht 160 cm; Wt 104.3 kg
[~2025-04-30 11:36] MED LIST changes: -AMOX500C2 PO; +DOXY1CAP57 PO; +METH4PAK PO
--- NOTE | 2025-04-30 11:47 | ECG ---
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
[2025-04-30] MEDS: ACETAMINOPHEN 325 MG TAB PO ONE (11:56)
--- NOTE | 2025-04-30 12:00 | ED.PDOC ---
SOB-HPI HPI Comments 55y F who presents to the ED for chief complaint of shortness of breath. Pt states she has been having shortness of breath with associated dry cough and chest pain since earlier this AM. Pt states her pain is sharp and poking in sensation, L sided, non-radiating, with no associated exacerbating or relieving factors. Pt otherwise in the ED, states she is having a headache in the ED but otherwise denies any other symptoms. Pt states she was also at 1 month prior and dx and treated for COPD exacerbation and discharged. Pt otherwise denies any other symptoms at this time. 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 Hx Family History Family History: Unknown Social History Smoker: Non-Smoker Alcohol: Denies ETOH Use Drugs: Denies Drug Use Lives In: Home Constitutional: denies: chills, diaphoresis, fatigue, fever, malaise, sweats, weakness, others EENTM: denies: blurred vision, double vision, ear bleeding, ear discharge, ear drainage, ear pain, ear ringing, eye pain, eye redness, hearing loss, mouth pain, mouth swelling, nasal discharge, nose bleeding, nose congestion, nose pain, photophobia, tearing, throat pain, throat swelling, voice changes, others Respiratory: reports: shortness of breath; denies: cough, hemoptysis, orthopnea, SOB at rest, SOB with excertion, stridor, wheezing, others Cardiovascular: reports: chest pain; denies: dizzy spells, diaphoresis, Dyspnea on exertion, edema, irregular heart beat, left arm pain, lightheadedness, palpitations, PND, syncope, others Gastrointestinal: denies: abdomen distended, abdominal pain, blood streaked bowels, constipated, diarrhea, dysphagia, difficulty swallowing, hematemesis, m loree, nausea, poor appetite, poor fluid intake, rectal bleeding, rectal pain, vomiting, others Genitourinary: denies: abnormal vagina bleeding, burning, dyspareunia, dysuria, flank pain, frequency, hematuria, incontinence, pain, , vagina discharge, urgency, others Neurological: reports: headache; denies: dizziness, fainting, left sided numbness, left sided weakness, numbness, paresthesia, pre-existing deficit, right sided numbness, right sided weakness, seizure, speech problems, tingling, tremors, weakness, others Musculoskeletal: denies: back pain, gout, joint pain, joint swelling, muscle pain, muscle stiffness, neck pain, others Integumetry: denies: bruises, change in color, change in hair/nails, dryness, laceration, lesions, lumps, rash, wounds, others Allergic/Immunocompromised: denies: Difficulty Healing, Frequent Infections, Hives, Itching, others Hematologic/Lymphatic: denies: anemia, blood clots, easy bleeding, easy bruising, swollen glands, others Endocrine: denies: excessive hunger, excessive sweating, excessive thirst, excessive urination, flushing, intolerance to cold, intolerance to heat, unexplained weight gain, unexplained weight loss, others Psychiatric: denies: anxiety, bipolar disorder, depression, hopeless, panic disorder, schizophrenia, sleepless, suicidal, others All Other Systems: Reviewed and Negative Physical Exam General Appearance: Mild Distress HEENT: Normal ENT Inspection, Pharynx Normal, TMs Normal Neck: Full Range of Motion, Non-Tender, Normal, Normal Inspection Respiratory: No Accessory Muscle Use Cardiovascular: Regular Rate/Rhythm Breast Exam: Deferred Gastrointestinal: No Organomegaly, Non Tender, No Pulsatile Mass, Normal Bowel Sounds, Soft Genitalia: Deferred Pelvic: Deferred Rectal: Deferred Extremities: No calf tenderness, Normal capillary refill, Normal inspection, Normal range of motion, Non-tender, No pedal edema Musculoskeletal : Apperance: Normal Neurologic: Alert, crew caller II-XII nml as Tested, No Motor Deficits, Normal Affect, Normal Mood, No Sensory Deficits Cerebellar Function: Normal Reflexes: Normal Skin: Dry, Normal Color, Warm Lymphatic: No Adenopathy Was a procedure done? Was a procedure done?: No Differential Dx Differential Diagnosis: Bronchitis, CHF, COPD, Hypertension, Myocardial infarction, Pneumonia, Pulmonary Embolism, Respiratory Distress, URI X-Ray, Labs, Meds, VS Vital Signs Date Time Temp Pulse Resp B/P (MAP) Pulse Ox O2 Delivery O2 Flow Rate FiO2 04/30/25 11:56 98.2 04/30/25 11:45 18 97 Room Air* 0 21 04/30/25 11:45 98.2 82 18 139/101 (114) 97 98.2 04/30/25 11:42 74 Lab Test 04/30/25 11:56 04/30/25 11:48 Range/Units White Blood Count 7.5 4.4-10.8 10^3/uL Red Blood Count 4.99 4.0-5.20 10^6/uL Hemoglobin 14.8 12.2-16.2 g/dL Hematocrit 44.8 36.0-46.0 % Mean Corpuscular Volume 89.7 80.0-100.0 fL Mean Corpuscular Hemoglobin 29.6 28.0-32.0 pg Mean Corpuscular Hemoglobin Concent 33.0 32.0-36.0 g/dL Red Cell Distribution Width 14.8 H 11.8-14.3 % Platelet Count 238 140-450 10^3/uL Mean Platelet Volume 9.5 6.9-10.8 fL Neutrophils (%) (Auto) 36.7 L 37.0-80.0 % Lymphocytes (%) (Auto) 46.1 10.0-50.0 % Monocytes (%) (Auto) 11.1 0.0-12.0 % Eosinophils (%) (Auto) 5.4 0.0-7.0 % Basophils (%) (Auto) 0.7 0.0-2.0 % Neutrophils # (Auto) 2.7 1.6-8.6 10 ^3/uL Lymphocytes # (Auto) 3.4 0.4-5.4 10 ^3/uL Monocytes # (Auto) 0.8 0-1.3 10 ^3/uL Eosinophils # (Auto) 0.4 0-0.8 10 ^3/uL Basophils # (Auto) 0.1 0-0.2 10 ^3/uL Nucleated Red Blood Cells 0.1 % Sodium Level 139 136-145 mmol/L Potassium Level 4.3 3.5-5.1 mmol/L Chloride Level 112 H 98-107 mmol/L Carbon Dioxide Level 21 20-31 mmol/L Anion Gap 6 5-15 Blood Urea Nitrogen 9 9-23 mg/dL Creatinine 1.15 H 0.550-1.02 mg/dL Glomerular Filtration Rate Calc 57 >90 mL/min BUN/Creatinine Ratio 7.8 L 10.0-20.0 Serum Glucose 105 74-106 mg/dL Calcium Level 9.6 8.7-10.4 mg/dL Troponin I High Sensitivity 10 </=34 ng/L POC Glucose 108 H 70-106 mg/dl Current Medications Medications (Trade) Dose Ordered Sig/Jimena Route Start Time Stop Time Status Last Admin Acetaminophen (Tylenol Tablet) 650 mg ONCE ONCE PO 04/30/25 12:00 04/30/25 12:01 DC 04/30/25 11:56 [place] [address] Ph: [phone] DIAGNOSTIC IMAGING Diagnostic Imaging Report : [id number] Signed PATIENT: MICAELA LONGACCT: [id number] UNIT: [id number] : 1970 LOC: ER ROOM / BED: / AGE / SEX: 55 / F ADM STATUS: REG ER SERVICE 1146 ORDERING PHYSICIAN: GOLD OLIVAREZ MD PROCEDURE(s): CXRP - CHEST PORTABLE REASON: sob ORDER NUMBER(s): [id number], ACCESSION NUMBER(s): [id number] CHEST RADIOGRAPH Indication: sob Technique: Single frontal view of the chest was obtained COMPARISON: XY CHEST PORTABLE on DOS: 03/22/25 FINDINGS: Lines and Tubes: None Lungs: Clear Pleura: No effusion. No pneumothorax. Cardiomediastinal contours: Unremarkable Bones: Unremarkable IMPRESSION: 1. No acute disease. ATED BY: CARI VIVEROS MD DICTATED DATE/TIME: 04/30/251216 SIGNED BY: CARI VIVEROS MD SIGNED DATE/TIME: 04/30/251216 CC: Time of 1ST Reevaluation: 12:44 Reevaluation 1ST: Improved Patient Education/Counseling: Diagnosis, Treatment Family Education/Counseling: No Family Present Departure 1 Departure Time of Disposition: 12:44 (Patient's worsening chest pain shortness of breath. We will the patient for further workup and expert consultation) Impression: Primary Impression: Acute chest pain Additional Impression: Shortness of breath Disposition: ADMITTED INPATIENT Admit to: Med Surg Condition: Serious Critical Care Note Critical Care Time?: Yes Critical care comment: Acute chest pain Authorized and Performed by: Gold Olivarez MD Total critical care time: Approximately 38 minutes Due to a high probability of clinically significant, life threatening deterioration, the patient required my highest level of preparedness to intervene emergently and I personally spent this critical care time directly and personally managing the patient. This critical care time included obtaining a history; examining the patient; pulse oximetry; ordering and review of studies; arranging urgent treatment with development of a management plan; evaluation of patient's response to treatment; frequent reassessment; and, discussions with other providers. This critical care time was performed to assess and manage the high probability of imminent, life-threatening deterioration that could result in multi-organ failure. It was exclusive of separately billable procedures and treating other patients and teaching time. Please see my other sections and the rest of the note for further information on patient assessment and treatment. Stability Stability form required: No Heart Score Heart Score: Heart Score Response (Comments) Value History Slightly Suspicious 0 EKG Normal 0 Age 45-64 1 Risk Factors 1 or 2 risk factors 1 Troponin Normal limit 0 Total 2 I personally scribed for GOLD OLIVAREZ MD ([email or web address]) on 04/30/25 at 12:00. Electronically submitted by Ermelinda Baltazar ([email or web address]). I personally scribed for GOLD OLIVAREZ MD ([email or web address]) on 04/30/25 at 12:22. Electronically submitted by Ermelinda Baltazar ([email or web address]). GOLD OLIVAREZ MD Apr 30, 2025 12:00
[2025-04-30 12:15] LABS: Potassium 4.3 mmol/L (3.5-5.1); Sodium 139 mmol/L (136-145)
[2025-04-30 12:16] LABS: Anion Gap 6 (5-15); Calcium 9.6 mg/dL (8.7-10.4); Carbon Dioxide 21 mmol/L (20-31)
[2025-04-30 12:18] LABS: Chloride 112 mmol/L (98-107)
[2025-04-30 12:19] LABS: Basophils # (auto) 0.1 10 ^3/uL (0-0.2); Basophils % (auto) 0.7 % (0.0-2.0); Eosinophils # (auto) 0.4 10 ^3/uL (0-0.8); Eosinophils % (auto) 5.4 % (0.0-7.0); Hematocrit 44.8 % (36.0-46.0); Hemoglobin 14.8 g/dL (12.2-16.2); Lymphocytes # (auto) 3.4 10 ^3/uL (0.4-5.4); Lymphocytes % (auto) 46.1 % (10.0-50.0); Mean Corpuscular Hemoglobin 29.6 pg (28.0-32.0); Mean Corpuscular Volume 89.7 fL (80.0-100.0); Monocytes # (auto) 0.8 10 ^3/uL (0-1.3); Monocytes % (auto) 11.1 % (0.0-12.0); Neutrophils # (auto) 2.7 10 ^3/uL (1.6-8.6); Neutrophils % (auto) 36.7 % (37.0-80.0); Nucleated Red Blood Cells % 0.1 %; Platelet Count (auto) 238 10^3/uL (140-450); Red Blood Cells 4.99 10^6/uL (4.0-5.20); Red Cell Distribution Width 14.8 % (11.8-14.3); White Blood Cell 7.5 10^3/uL (4.4-10.8)
--- NOTE | 2025-04-30 12:19 | DVH ---
CHEST RADIOGRAPH Indication: sob Technique: Single frontal view of the chest was obtained COMPARISON: XY CHEST PORTABLE on DOS: 03/22/25 FINDINGS: Lines and Tubes: None Lungs: Clear Pleura: No effusion. No pneumothorax. Cardiomediastinal contours: Unremarkable Bones: Unremarkable IMPRESSION: 1. No acute disease.
[2025-04-30 12:21] LABS: BUN/Creatinine Ratio 7.8 (10.0-20.0); Blood Urea Nitrogen 9 mg/dL (9-23); Glucose 105 mg/dL (74-106)
[2025-04-30] MEDS ORDERED: MORPHINE SULFATE INJ 2 MG/ml SYRG IV PRN (14:45)
[2025-04-30] MEDS ORDERED: DEXTROSE (50%) 50ML SYRG IV PRN (14:45)
[2025-04-30] MEDS ORDERED: ACETAMINOPHEN 325 MG TAB PO PRN (14:45)
[2025-04-30] MEDS ORDERED: NITROGLYCERIN 0.4 MG SL TAB SL PRN (14:45)
[2025-04-30] MEDS ORDERED: ONDANSETRON HCL 4 MG/2 ML VIAL IV PRN (14:45)
--- NOTE | 2025-04-30 14:50 | DVHHP2 ---
History of Present Illness Reason for Visit: SOB History of Present Illness Susan Best is a 55-year-old female with past medical history of hypertension, diabetes type 2, COPD, cholecystectomy, , and left tympanostomy tube as a child for recurrent ear infections who presents to the ED with shortness of breath x1 day. Patient also states that she has some palpitations and sticking pains around her chest along with a cough and headac he. Patient states that she was here over a month ago for the same issue and was diagnosed with COPD exacerbation. She does endorse that she smokes 5 cigarettes per day along with marijuana use. Patient denies any chest pain, fever, chills, lightheadedness, weakness, dizziness, recent trauma or injury, recent sick contacts, recent travels, recent ingestion of spoiled food, abdominal pain, nausea, vomiting, or diarrhea. Cardiovascular: HTN Pulmonary: COPD Endocrine: Diabetes Past Surgical History: Cholecystectomy, , Other (Left Tympanostomy tube) Family History: Cancer, Hypertension, Other (Mom with hypertension and dad with prostate cancer) Smoke: <1 pack per day ALCOHOL: none Drugs: Marijuana Lives: with Family Domestic Violence: Neg Review of Systems Respiratory: Shortness of breath Allergies: Coded Allergies: Iodine (Verified Allergy, Unknown, 03/22/25) Medications Current Medications Medications Dose Ordered Sig/Jimena Route Start Time Stop Time Status Last Admin Dose Admin Methylprednisolone Sodium Succinate 40 mg Q8HR IV 04/30/25 22:00 UNV Albuterol 2.5 mg Q4HWA BANNER 04/30/25 18:00 UNV Ipratropium [place] 0.5 mg Q4HWA [place]NER 04/30/25 18:00 UNV Diagnostic Test (Pha) 1 strip ACHS 04/30/25 17:00 UNV Insulin Human Regular ACHS SC 04/30/25 17:00 UNV Dextrose 50 ml UD PRN IV 04/30/25 14:45 UNV Ondansetron HCl 4 mg Q4HP PRN IV 04/30/25 14:45 UNV Acetaminophen 650 mg Q6HP PRN PO 04/30/25 14:45 UNV Nitroglycerin 0.4 mg Q5MINP PRN SL 04/30/25 14:45 UNV Morphine Sulfate 2 mg Q30M PRN IV 04/30/25 14:45 UNV Exam Vital Signs Vital Signs Date Time Temp Pulse Resp B/P (MAP) Pulse Ox O2 Delivery O2 Flow Rate FiO2 04/30/25 13:39 97.6 71 18 137/101 (113) 95 97.6 04/30/25 13:39 Room Air 04/30/25 11:45 0 21 General Appearance: Alert, Oriented X3, Cooperative, No acute distress HEENT: Atraumatic, PERRLA, EOMI, Mucous membr. moist/pink Respiratory: Normal air movement Cardiovascular: Normal S1, Normal S2 Abdominal: Normal bowel sounds, Soft, No tenderness, No hepatospenomegaly, No masses Extremities: No clubbing, No cyanosis, No edema, Normal pulses Skin: No significant lesion Neuro: Normal gait, Normal speech, Strength at 5/5 X4 ext, Normal tone, Sensation intact Psych/Mental Status: Mood NL Labs/Xrays Labs Test 04/30/25 12:44 04/30/25 11:56 04/30/25 11:48 Range/Units Troponin I High Sensitivity 12 </=34 ng/L White Blood Count 7.5 4.4-10.8 10^3/uL Red Blood Count 4.99 4.0-5.20 10^6/uL Hemoglobin 14.8 12.2-16.2 g/dL Hematocrit 44.8 36.0-46.0 % Mean Corpuscular Volume 89.7 80.0-100.0 fL Mean Corpuscular Hemoglobin 29.6 28.0-32.0 pg Mean Corpuscular Hemoglobin Concent 33.0 32.0-36.0 g/dL Red Cell Distribution Width 14.8 H 11.8-14.3 % Platelet Count 238 140-450 10^3/uL Mean Platelet Volume 9.5 6.9-10.8 fL Neutrophils (%) (Auto) 36.7 L 37.0-80.0 % Lymphocytes (%) (Auto) 46.1 10.0-50.0 % Monocytes (%) (Auto) 11.1 0.0-12.0 % Eosinophils (%) (Auto) 5.4 0.0-7.0 % Basophils (%) (Auto) 0.7 0.0-2.0 % Neutrophils # (Auto) 2.7 1.6-8.6 10 ^3/uL Lymphocytes # (Auto) 3.4 0.4-5.4 10 ^3/uL Monocytes # (Auto) 0.8 0-1.3 10 ^3/uL Eosinophils # (Auto) 0.4 0-0.8 10 ^3/uL Basophils # (Auto) 0.1 0-0.2 10 ^3/uL Nucleated Red Blood Cells 0.1 % Sodium Level 139 136-145 mmol/L Potassium Level 4.3 3.5-5.1 mmol/L Chloride Level 112 H 98-107 mmol/L Carbon Dioxide Level 21 20-31 mmol/L Anion Gap 6 5-15 Blood Urea Nitrogen 9 9-23 mg/dL Creatinine 1.15 H 0.550-1.02 mg/dL Glomerular Filtration Rate Calc 57 >90 mL/min BUN/Creatinine Ratio 7.8 L 10.0-20.0 Serum Glucose 105 74-106 mg/dL Calcium Level 9.6 8.7-10.4 mg/dL POC Glucose 108 H 70-106 mg/dl CHEST RADIOGRAPH Indication: sob Technique: Single frontal view of the chest was obtained COMPARISON: XY CHEST PORTABLE on DOS: 03/22/25 FINDINGS: Lines and Tubes: None Lungs: Clear Pleura: No effusion. No pneumothorax. Cardiomediastinal contours: Unremarkable Bones: Unremarkable IMPRESSION: 1. No acute disease. Assessment/Plan Assessment/Plan Assessment Palpitations Acute on chronic COPD exacerbation Tobacco use Marijuana use Obesity [place] History of hypertension History of diabetes type 2 History of cholecystectomy History of History of left tympanostomy tube Plan Admit to tele Antipyretics Antiemetics Pain management Troponin's negative x2 Chest x-ray noted EKG D-dimer Influenza test COVID test Hemoglobin A1c ISS and Accu-Cheks Duo nebs Steroids Last echo on 03/25/2025 LV EF IS 65% Diet Home medications reconciled DVT prophylaxis-not indicated patient ambulating PUD prophylaxis-not indicated no history of GERD or GI bleed Discussed plan of care with patient and nurse Counseled patient on lifestyle modifications, diet, and exercise Counseled patient on cessation of tobacco use and marijuana use Plan discussed with: Patient My Orders Orders - SOLIS REGANP Procedure Category Date Status Time D-Dimer LAB 04/30/25 Transmitted 14:32 Rapid Influenza A&B LAB 04/30/25 Transmitted 14:32 Covid19 Antigen Jade LAB 04/30/25 Transmitted Methylprednisolone PHA 04/30/25 Logged Sod Succ (Solu Medrol 22:00 Albuterol Medneb PHA 04/30/25 Logged (Ventolin Medneb) 18:00 Ipratropium Medneb PHA 04/30/25 Logged (Atrovent Medneb) 18:00 Hemoglobin A1c LAB 04/30/25 Transmitted 14:32 Glucose Blood PHA 04/30/25 Logged (Accu-Chek Comfort 17:00 Insulin R (Human) PHA 04/30/25 Logged (Insulin R) 17:00 Dextrose 50% Syringe PHA 04/30/25 Logged 14:45 Admit ADMIT 04/30/25 Transmitted 14:32 Allergies ADY 04/30/25 Transmitted 14:32 Code Status CODE 04/30/25 Transmitted 14:32 Ondansetron Hcl PHA 04/30/25 Logged (Zofran) 14:45 Complete Blood Count LAB 05/01/25 Verified 04:00 Comprehensive LAB 05/01/25 Verified Metabolic Panel 04:00 Cardiac DIET 04/30/25 Transmitted Diet-2gna,Lofat,Lochol Dinner Acetaminophen Tablet PHA 04/30/25 Logged (Tylenol Tablet) 14:45 Sequential [facility] 04/30/25 Transmitted Compression Device Nitroglycerin PHA 04/30/25 Logged Sublingual (Ntrostat 14:45 Morphine Sulfate PHA 04/30/25 Logged Injection 14:45 Stat Ekg For Chest [facility] 04/30/25 Transmitted Pain 14:32 Notify Md Of Changes [facility] 04/30/25 Transmitted From Base 14:32 Instrument Fitter For [facility] 04/30/25 Transmitted 24 Hours 14:32 Emergency Dysrhythmia [facility] 04/30/25 Transmitted Protocol 14:32 Rhythm Strips Once [facility] 04/30/25 Transmitted Every Shift 14:32 Oxygen By Nasal RT 04/30/25 Transmitted Cannula 14:32 Date of Service: Apr 30, 2025 Billing Provider: SOLIS REGAN Common Visit Codes: [id number] INP/OBS CARE (HIGH) SOLIS REGAN Apr 30, 2025 14:50
[2025-04-30] MEDS: methylPREDNISolone SOD SUCC 40 MG/ML VL IV SCH (15:13)
[2025-04-30] MEDS: HYDROcodone-ACET 5/325MG TAB ONE (15:21)
[2025-04-30] MEDS ORDERED: HYDROcodone-ACET 5/325MG TAB PO PRN (15:30)
[2025-04-30] MEDS: InsuLIN REG 1unit/0.01ml Soln (100units/ml) SC SCH (17:00)
[2025-04-30] MEDS: ACCU-CHEK COMFORT CURVE STRIP VI SCH (17:23)
[2025-04-30] MEDS: IPRATROPIUM BROM 0.5 MG/2.5ML INH SOL NEB SCH (18:05)
[2025-04-30] MEDS: ALBUTEROL SULF 2.5 MG/0.5ML(0.5%) NEB SOLN NEB SCH (18:05)
[2025-04-30 18:35] LABS: COVID19 ANTIGEN SOFIA FIA NEGATIVE (NEGATIVE)
[2025-04-30 18:36] LABS: Rapid Influenza A Negative (Negative); Rapid Influenza B Negative (Negative)
[2025-04-30] MEDS: hydrALAZINE HCL 25 MG TAB PO SCH (22:07)
[2025-05-01] VITALS (20 sets, daily range): BP systolic 104–134; BP diastolic 61–98; PULSE 52–77; RESP 12–98; TEMP 97–98; O2SAT 94–100
[2025-05-01] MEDS ORDERED: NICO21DI37 TOP (01:27)
[2025-05-01 07:45] LABS: Basophils # (auto) 0 10 ^3/uL (0-0.2); Basophils % (auto) 0.5 % (0.0-2.0); Eosinophils # (auto) 0 10 ^3/uL (0-0.8); Hematocrit 39.6 % (36.0-46.0); Hemoglobin 13.3 g/dL (12.2-16.2); Lymphocytes # (auto) 1.6 10 ^3/uL (0.4-5.4); Lymphocytes % (auto) 21.5 % (10.0-50.0); Mean Corpuscular Hemoglobin 30.1 pg (28.0-32.0); Mean Corpuscular Hgb Conc. 33.7 g/dL (32.0-36.0); Mean Corpuscular Volume 89.3 fL (80.0-100.0); Monocytes # (auto) 0.1 10 ^3/uL (0-1.3); Monocytes % (auto) 1.4 % (0.0-12.0); Neutrophils # (auto) 5.7 10 ^3/uL (1.6-8.6); Neutrophils % (auto) 76.6 % (37.0-80.0); Nucleated Red Blood Cells % 0.2 %; Platelet Count (auto) 219 10^3/uL (140-450); Red Blood Cells 4.44 10^6/uL (4.0-5.20); Red Cell Distribution Width 14.3 % (11.8-14.3); White Blood Cell 7.5 10^3/uL (4.4-10.8)
[2025-05-01 08:15] LABS: Alanine Aminotransferase 20 U/L (7-40); Albumin 4.1 g/dL (3.2-4.8); Alkaline Phosphatase 58 U/L (46-116); Anion Gap 10 (5-15); Aspartate Aminotransferase 19 U/L (<34); BUN/Creatinine Ratio 10.3 (10.0-20.0); Bilirubin, Total 0.4 mg/dL (0.2-1.0); Blood Urea Nitrogen 11 mg/dL (9-23); Calcium 9.6 mg/dL (8.7-10.4); Carbon Dioxide 23 mmol/L (20-31); Sodium 140 mmol/L (136-145); Total Protein 7.2 g/dL (5.7-8.2)
[2025-05-01 08:17] LABS: Chloride 107 mmol/L (98-107); Glucose 139 mg/dL (74-106)
[2025-05-01] MEDS: CHOLECALCIFEROL (VITD3) 1,000UNIT=25mCg TAB PO SCH (09:06)
[2025-05-01] MEDS: amLODIPine BESYLATE 5 MG TAB PO SCH (09:07)
[2025-05-01] MEDS: METOPROLOL SUCCINATE XL 50 MG TAB PO SCH (09:07)
[2025-05-01] MEDS: hydroCHLOROthiazide 25 MG TAB PO SCH (09:08)
[2025-05-01] MEDS: LOSARTAN POTASSIUM 50 MG TAB PO SCH (09:09)
[2025-05-01] MEDS: POLYETHYLENE GLYCOL 17 GM PWDR PO ONE (16:28)
[2025-05-01] MEDS: FLUTICASONE PROP NASAL SPR 0.05 % (50MCG) 16GM EACHNOSTRI SCH (21:00)
[2025-05-02] VITALS (14 sets, daily range): BP systolic 107–131; BP diastolic 77–101; PULSE 51–76; RESP 14–20; TEMP 97–98.1; O2SAT 95–100
[2025-05-02 06:08] LABS: Basophils # (auto) 0 10 ^3/uL (0-0.2); Basophils % (auto) 0.4 % (0.0-2.0); Eosinophils # (auto) 0.1 10 ^3/uL (0-0.8); Eosinophils % (auto) 0.7 % (0.0-7.0); Hematocrit 40.8 % (36.0-46.0); Hemoglobin 13.7 g/dL (12.2-16.2); Lymphocytes # (auto) 3.5 10 ^3/uL (0.4-5.4); Lymphocytes % (auto) 36.3 % (10.0-50.0); Mean Corpuscular Hemoglobin 30.1 pg (28.0-32.0); Mean Corpuscular Hgb Conc. 33.6 g/dL (32.0-36.0); Mean Corpuscular Volume 89.4 fL (80.0-100.0); Monocytes # (auto) 0.7 10 ^3/uL (0-1.3); Monocytes % (auto) 7.6 % (0.0-12.0); Neutrophils # (auto) 5.3 10 ^3/uL (1.6-8.6); Nucleated Red Blood Cells % 0.1 %; Platelet Count (auto) 226 10^3/uL (140-450); Red Blood Cells 4.56 10^6/uL (4.0-5.20); Red Cell Distribution Width 14.6 % (11.8-14.3); White Blood Cell 9.7 10^3/uL (4.4-10.8)
[2025-05-02 06:16] LABS: Anion Gap 7 (5-15); Carbon Dioxide 29 mmol/L (20-31); Chloride 107 mmol/L (98-107); Potassium 3.7 mmol/L (3.5-5.1); Sodium 143 mmol/L (136-145)
[2025-05-02 06:18] LABS: Calcium 9.8 mg/dL (8.7-10.4)
[2025-05-02 06:22] LABS: BUN/Creatinine Ratio 10.5 (10.0-20.0); Blood Urea Nitrogen 13 mg/dL (9-23); Glucose 94 mg/dL (74-106)
[2025-05-02] MEDS ORDERED: FAMO20TA10 PO (09:27)
[2025-05-02] MEDS ORDERED: TIOT1AER2 IN (09:27)
[2025-05-02] MEDS ORDERED: PRED20TA2 PO (09:27)
[2025-05-02] MEDS ORDERED: FLUT1SPR5 (09:27)
[2025-05-02] MEDS ORDERED: AZIT500T66 PO (09:27)
[2025-05-02] MEDS: predniSONE 20 MG TAB PO SCH (09:32)
[2025-05-02] MEDS: AZITHROMYCIN 250 MG TAB PO SCH (09:33)
[2025-05-02] MEDS: FAMOTIDINE 20 MG TAB PO SCH (09:35)
--- NOTE | 2025-05-02 14:32 | DVHDS2 ---
Discharge Summary Date of Admission Apr 30, 2025 at 14:32 Date of Discharge: May 02, 2025 Labs/Diagnostic Data: Laboratory Results Test 05/02/25 11:17 05/02/25 05:04 05/01/25 06:09 04/30/25 17:24 POC Glucose 101 mg/dl (70-106) White Blood Count 9.7 10^3/uL (4.4-10.8) Red Blood Count 4.56 10^6/uL (4.0-5.20) Hemoglobin 13.7 g/dL (12.2-16.2) Hematocrit 40.8 % (36.0-46.0) Mean Corpuscular Volume 89.4 fL (80.0-100.0) Mean Corpuscular Hemoglobin 30.1 pg (28.0-32.0) Mean Corpuscular Hemoglobin Concent 33.6 g/dL (32.0-36.0) Red Cell Distribution Width 14.6 % (11.8-14.3) Platelet Count 226 10^3/uL (140-450) Mean Platelet Volume 9.7 fL (6.9-10.8) Neutrophils (%) (Auto) 55.0 % (37.0-80.0) Lymphocytes (%) (Auto) 36.3 % (10.0-50.0) Monocytes (%) (Auto) 7.6 % (0.0-12.0) Eosinophils (%) (Auto) 0.7 % (0.0-7.0) Basophils (%) (Auto) 0.4 % (0.0-2.0) Neutrophils # (Auto) 5.3 10 ^3/uL (1.6-8.6) Lymphocytes # (Auto) 3.5 10 ^3/uL (0.4-5.4) Monocytes # (Auto) 0.7 10 ^3/uL (0-1.3) Eosinophils # (Auto) 0.1 10 ^3/uL (0-0.8) Basophils # (Auto) 0 10 ^3/uL (0-0.2) Nucleated Red Blood Cells 0.1 % Sodium Level 143 mmol/L (136-145) Potassium Level 3.7 mmol/L (3.5-5.1) Chloride Level 107 mmol/L (98-107) Carbon Dioxide Level 29 mmol/L (20-31) Anion Gap 7 (5-15) Blood Urea Nitrogen 13 mg/dL (9-23) Creatinine 1.24 mg/dL (0.550-1.02) Glomerular Filtration Rate Calc 52 mL/min (>90) BUN/Creatinine Ratio 10.5 (10.0-20.0) Serum Glucose 94 mg/dL (74-106) Calcium Level 9.8 mg/dL (8.7-10.4) Total Bilirubin 0.4 mg/dL (0.2-1.0) Aspartate Amino Transferase (AST) 19 U/L (<34) Alanine Aminotransferase (ALT) 20 U/L (7-40) Alkaline Phosphatase 58 U/L (46-116) Total Protein 7.2 g/dL (5.7-8.2) Albumin 4.1 g/dL (3.2-4.8) Influenza Type A Antigen Negative (Negative) Influenza Type B Antigen Negative (Negative) SARS-CoV-2 Antigen (Rapid) Negative (NEGATIVE) Test 04/30/25 15:04 04/30/25 11:56 D-Dimer, Quantitative 0.49 mg/L FEU (0.0-0.49) Troponin I High Sensitivity 10 ng/L (</=34) Hemoglobin A1c 6.1 % A1C (<5.7) Other Laboratory Tests 05/02/25 05:04 Brief Hx & Hospital Course: 55 F with COPD tobacco use admitted for COPD exacerbation. patient started on breathing treatment and zpak, with improvement in symptoms. reported has CPAP at home for sleep apnea but not using it. follows pul outpatient. stable to [facility] [place] with ioral prednisone and zpak, started siriva. Condition at Discharge: Good Final Diagnosis/Problems List COPD exacerbation slow transit constipation acute on chronic hypoxic RF smoker sleep apnea HTN Discharge Disposition: Home Discharge Instruct/Medications Diet: Consistent carbohydrate, Cardiac 2g Na,low cholest Activity: No Restrictions, As Tolerated Follow Up/Referral: [facility] Medications: spiriva zpack prednisone Discharge Statement: "Patient was advised to return to the ER or call 911 if any headaches, dizziness, shortness of breath, chest pain, abdominal pain, bleeding, fevers, or worsening of medical condition. Patient was counseled about treatment plan, medications, possible side effects, patientverbalized understanding. All questions were answered to the best of my ability. This discharge took greater then 30 minutes in planning, reviewing documentation, counseling the patient, and discussing with other team members." ASSESSMENT ASSESSMENT Assessment COPD exacerbation Date of Service: May 02, 2025 Billing Provider: VARSHA LUNA MD Common Visit Codes: 02511-UQW/OBS DISCH DAY >30min VARSHA LUNA MD May 02, 2025 14:32
--- NOTE | 2025-05-02 15:41 | DVHPN2 ---
Assessment/Plan My Orders Orders - VARSHA LUNA MD Procedure Category Date Status Time Discharge DISCHARGE 05/02/25 Transmitted 14:31 Date of Service: May 01, 2025 Billing Provider: VARSHA LUNA MD Common Visit Codes: [id number] INP/OBS CARE(HIGH) VARSHA LUNA MD May 02, 2025 15:41
[2025-05-02] MEDS ORDERED: SENN-105 PO (15:44)
== END 2025-05-02 17:25 | disposition home or self-care (01) | DRG 140 ==
LOC: ER 11:36 → OVERFLOW 14:32 → TELE-CENTR 23:55
PROVIDERS: ADMIT Student in an Organized Health Care Education/Training Program; ATTEND Student in an Organized Health Care Education/Training Program
DX: J44.1 Chronic obstructive pulmonary disease with (acute) exacerbation (principal); J96.21 Acute and chronic respiratory failure with hypoxia; N17.9 Acute kidney failure, unspecified; E11.9 Type 2 diabetes mellitus without complications; E66.9 Obesity, unspecified; Z68.39 Body mass index [BMI] 39.0-39.9, adult; I10 Essential (primary) hypertension; F17.210 Nicotine dependence, cigarettes, uncomplicated; Z20.822 Contact with and (suspected) exposure to COVID-19; G47.30 Sleep apnea, unspecified; K59.01 Slow transit constipation; F12.90 Cannabis use, unspecified, uncomplicated; Z91.041 Radiographic dye allergy status; Z98.891 History of uterine scar from previous surgery; Z90.49 Acquired absence of other specified parts of digestive tract; Z82.49 Family history of ischemic heart disease and other diseases of the circulatory system
CPT/HCPCS: 36415; 71045; 80048; 80053; 82962; 83036; 84484; 85025; 85379; 87081; 87426; 87804; 93005; 94640; 99291; G0378; J1815